=== PATIENT | male | born 1965 | race Caucasian/White ===

== ENCOUNTER 2017-06-15 06:20 | Inpatient (IN) | payer SELFPAY ==
[2017-06-15] MEDS ORDERED: NORMAL SALINE 1000 ML 1,000 ML IV PRN (07:07)
[2017-06-15] MEDS ORDERED: NORMAL SALINE 1000 ML 1,000 ML IV ONE (07:07)
[2017-06-15] MEDS ORDERED: DICYCLOMINE HCL INJ 20 MG/2 ML AMPULE IM PRN (07:08)
[2017-06-15] MEDS ORDERED: PROCHLORPERAZINE EDISYLATE INJ 10 MG/2 ML VIAL IM ONE (07:08)
--- NOTE | 2017-06-15 07:10 | ER Document Report ---
ED General - General Chief Complaint: Alcohol Withdrawl Stated Complaint: TOO MUCH TO DRINK Time Seen by Provider: 06/15/17 07:03 Notes: 51 years old male with a history of alcohol abuse, states that he has been drinking plain vodka aquatic every day for the last 5 days., Has not eaten anything has vomited many times, currently having diffuse abdominal pain/ discomfort. Denies any vomiting blood. Did not have any diarrhea or bloody stools. Denies any constitutional symptoms TRAVEL OUTSIDE OF THE [place] IN LAST 30 DAYS: No - Related Data Allergies/Adverse Reactions: No Known Allergies Allergy (Unverified 03/30/15 09:13) Past Medical History - Social History Smoking Status: Unknown if Ever Smoked Frequency of alcohol use: Heavy Family History: Reviewed & Not Pertinent Patient has suicidal ideation: No Patient has homicidal ideation: No Renal/ Medical History: Denies: Hx Peritoneal Dialysis Psychiatric Medical History: Reports: Hx Anxiety Past Surgical History: Reports: Hx Orthopedic Surgery - Right forearm surgery - Immunizations Hx Diphtheria, Pertussis, Tetanus Vaccination: Yes Review of Systems - Review of Systems Notes: REVIEW OF SYSTEMS: CONSTITUTIONAL : Denies fever, chills, or sweats. Denies recent illness. EENT: Denies eye, ear, throat, or mouth pain or symptoms. Denies nasal or sinus congestion or discharge. Denies throat, tongue, or mouth swelling or difficulty swallowing. CARDIOVASCULAR: Denies chest pain. Denies palpitations or racing or irregular heart beat. Denies ankle edema. RESPIRATORY: Denies cough, cold, or chest congestion. Denies shortness of breath, difficulty breathing, or wheezing. GASTROINTESTINAL: Denies abdominal pain or distention. Denies nausea, vomiting , or diarrhea. Denies blood in vomitus, stools, or per rectum. Denies black, tarry stools. Denies constipation. GENITOURINARY: Denies difficulty urinating, painful urination, burning, frequency, blood in urine, or discharge. MUSCULOSKELETAL: Denies back or neck pain or stiffness. Denies joint pain or swelling. SKIN: Denies rash, lesions or sores. HEMATOLOGIC : Denies easy bruising or bleeding. LYMPHATIC: Denies swollen, enlarged glands. NEUROLOGICAL: Denies confusion or altered mental status. Denies passing out or loss of consciousness. Denies dizziness or lightheadedness. Denies headache. Denies weakness or paralysis or loss of use of either side. Denies problems with gait or speech. Denies sensory loss, numbness, or tingling. Denies seizures. PSYCHIATRIC: Denies anxiety or stress. Denies depression, suicidal ideation, or homicidal ideation. ALL OTHER SYSTEMS REVIEWED AND NEGATIVE. Dictation was performed using [employer] voice recognition software PHYSICAL EXAMINATION: GENERAL: Well-appearing, well-nourished and in mild to moderate acute distress. Not appear to be severely intoxicated HEAD: Atraumatic, normocephalic. EYES: Pupils equal round and reactive to light, extraocular movements intact, sclera anicteric, conjunctiva are normal. ENT: Nares patent, oropharynx clear without exudates. Moist mucous membranes. NECK: Normal range of motion, supple without lymphadenopathy LUNGS: Breath sounds clear to auscultation bilaterally and equal. No wheezes rales or rhonchi. HEART: Regular rate and rhythm without murmurs ABDOMEN: Soft, nontender, nondistended abdomen. No guarding, no rebound. No masses appreciated. Musculoskeletal: Normal range of motion, no pitting or edema. No cyanosis. NEUROLOGICAL: Cranial nerves grossly intact. Normal speech, normal gait. Normal sensory, motor exams PSYCH: Normal mood, normal affect. SKIN: Warm, Dry, normal turgor, no rashes or lesions noted. Physical Exam - Vital signs Vitals: Temp Pulse Resp BP Pulse Ox 98.0 F 101 H 17 125/99 H 95 06/15/17 06:48 06/15/17 06:48 06/15/17 06:48 06/15/17 06:48 06/15/17 06:48 Course - Vital Signs Vital signs: Temp Pulse Resp BP Pulse Ox 98.0 F 101 H 19 125/99 H 97 06/15/17 06:48 06/15/17 06:48 06/15/17 08:00 06/15/17 06:48 06/15/17 08:00 - Laboratory Result Diagrams: 06/15/17 07:48 06/15/17 07:48 Laboratory results interpreted by me: 06/15/17 06/15/17 06/15/17 07:48 07:48 07:48 RBC 4.33 L MCH 34.1 H RDW 16.8 H Plt Count 109 L Band Neutrophils % 15 H Lymphocytes % (Manual) 9 L Sodium 127.1 L Chloride 85 L Carbon Dioxide 15 L Anion Gap 27 H Glucose 213 H Total Bilirubin 3.7 H Direct Bilirubin 2.8 H AST 349 H ALT 178 H Alkaline Phosphatase 189 H Lipase 301.6 H - Diagnostic Test Radiology results interpreted by me: 06/15/17 15:41 CTA of the abdomen reported by radiologist and reviewed Discharge - Discharge Clinical Impression: Alcohol abuse, Dehydration, Abdominal pain Pancreatitis, alcoholic, acute Qualifiers: Acute pancreatitis complication: unspecified Qualified Code(s): K85.20 - Alcohol induced acute pancreatitis without necrosis or infection Disposition: ADMITTED INPATIENT Admitting Provider: Hospitalist Unit Admitted: Telemetry
[2017-06-15 07:59] LABS: HEMATOCRIT 41.8 % (37.9-51.0); HEMOGLOBIN 14.8 g/dL (13.5-17.0); HGB HCT DIFFERENCE 2.6; MEAN CORPUSCULAR HEMOGLOBIN 34.1 pg (27.0-33.4); MEAN CORPUSCULAR HGB CONC 35.3 g/dL (32.0-36.0); MEAN CORPUSCULAR VOLUME 97 fl (80-97); RED BLOOD COUNT 4.33 10^6/uL (4.35-5.55); RED CELL DISTRIBUTION WIDTH 16.8 % (11.5-14.0); WHITE BLOOD COUNT 6.4 10^3/uL (4.0-10.5)
[2017-06-15 08:12] LABS: ALANINE AMINOTRANSFERASE 178 U/L (21-72); ALKALINE PHOSPHATASE 189 U/L (38-126); ASPARTATE AMINO TRANSFERASE 349 U/L (17-59); BILIRUBIN,DIRECT 2.8 mg/dL (0.0-0.4); BILIRUBIN,TOTAL 3.7 mg/dL (0.2-1.3); BLOOD UREA NITROGEN 18 mg/dL (7-20); CALCIUM 9.3 mg/dL (8.4-10.2); CARBON DIOXIDE 15 mmol/L (22-30); CHLORIDE 85 mmol/L (98-107); CREATININE RESULT 1.07 mg/dL (0.52-1.25); GLUCOSE 213 mg/dL (75-110); POTASSIUM 3.7 mmol/L (3.6-5.0); SODIUM 127.1 mmol/L (137-145); TOTAL PROTEIN 6.7 g/dL (6.3-8.2)
[2017-06-15 08:18] LABS: ALCOHOL < 10 mg/dL (NONE DETECTED)
[2017-06-15 08:28] LABS: BASOPHILS % (MANUAL) 0 % (0-2); EOSINOPHILS % (MANUAL) 0 % (0-6); LYMPHOCYTES % (MANUAL) 9 % (13-45); TOTAL CELLS COUNTED 100
[2017-06-15 08:29] LABS: ANISOCYTOSIS SLIGHT; BAND NEUTROPHILS % (MANUAL) 15 % (3-5); HYPOCHROMASIA SLIGHT
[2017-06-15 08:30] LABS: ANION GAP 27 (5-19); NUCLEATED RED BLOOD CELLS 7 /100 WBC (0)
[2017-06-15] MEDS ORDERED: KETOROLAC TROMETHAMINE INJ/PF 30 MG/1 ML SDV IV ONE (09:25)
[2017-06-15] MEDS ORDERED: LORAZEPAM INJ 2 MG/1 ML VIAL IV ONE (09:25)
[2017-06-15 09:41] LABS: URINE BARBITURATES SCREEN NEGATIVE; URINE METHADONE SCREEN NEGATIVE; URINE OPIATES LOW NEGATIVE; URINE PHENCYCLIDINE SCREEN NEGATIVE
[2017-06-15 09:56] LABS: LIPASE 301.6 U/L (23-300)
[2017-06-15] MEDS ORDERED: MORPHINE SULFATE 10 MG/ML INJ IV ONE (10:44)
--- NOTE | 2017-06-15 12:50 | RADIOLOGY REPORT (SQ) ---
EXAM DESCRIPTION: CT ABD/PELVIS WITH IV ONLY COMPLETED DATE/TIME: 06/15/2017 12:36 pm REASON FOR STUDY: Pancreatitis COMPARISON: None. TECHNIQUE: CT scan of the abdomen and pelvis performed using helical scanning technique with dynamic intravenous contrast injection. No oral contrast. Images reviewed with lung, soft tissue, and bone windows. Reconstructed coronal and sagittal MPR images reviewed. Delayed images for evaluation of the urinary system also acquired. All images stored on PACS. All CT scanners at this facility use dose modulation, iterative reconstruction, and/or weight based d osing when appropriate to reduce radiation dose to as low as reasonably achievable (ALARA). [facility]: Dose Right [facility]: CareDose [facility]: Dose Right [facility]: Teradose 4D [facility]: appCREAR CONTRAST TYPE AND DOSE: 93 Isovue 370- low osmolar. RENAL FUNCTION: GFR > 60. RADIATION DOSE: . LIMITATIONS: None. FINDINGS: LOWER CHEST: No significant findings. No nodules or infiltrates. LIVER: Diffuse fatty liver. No masses. SPLEEN: Normal size. No focal lesions. PANCREAS: No masses. No significant calcifications. No adjacent inflammation or peripancreatic fluid collections. Pancreatic duct not dilated. GALLBLADDER: No identified stones by CT criteria. No inflammatory changes to suggest cholecystitis. ADRENAL GLANDS: No significant masses or asymmetry. RIGHT KIDNEY AND URETER: No solid masses. No significant calcifications. No hydronephrosis or hyd roureter. LEFT KIDNEY AND URETER: No solid masses. No significant calcifications. No hydronephrosis or hydr oureter. AORTA AND VESSELS: No aneurysm. No dissection. Renal arteries, SMA, celiac without stenosis. 2 right renal arteries. RETROPERITONEUM: No retroperitoneal adenopathy, hemorrhage or masses. BOWEL AND PERITONEAL CAVITY: No masses or inflammatory changes. No free fluid or peritoneal masses. APPENDIX: Normal. PELVIS: No mass. No free fluid. Normal bladder. ABDOMINAL WALL: No masses. No hernias. BONES: No significant or acute findings. OTHER: No other significant finding. IMPRESSION: Marked fatty infiltration of the liver. No acute findings. TECHNICAL DOCUMENTATION: JOB ID: [id number] Quality ID # [id number]: Final reports with documentation of one or more dose reduction techniques (e.g., Au tomated exposure control, adjustment of the mA and/or kV according to patient size, use of iterative reconstruction technique) 2010 [employer]- All Rights Reserved
[2017-06-15] MEDS ORDERED: ONDANSETRON HCL INJ/PF 4 MG/2 ML SDV IV PRN (16:29)
--- NOTE | 2017-06-15 16:44 | PDOC H&P ---
History of Present Illness Patient complains of: Left upper quadrant abdominal pain. History of Present Illness: GHANSHYAM JUÁREZ is a 51 year old male with history of chronic alcohol abuse and peptic ulcer disease who presents with abdominal pain for the last several days. Patient reports that his pain is gotten worse over the last 24 hours. He drinks about 1/5 of vodka daily. He also reports he has had stomach ulcers in the past and usually takes Carafate and Prilosec for. He does report having an episode of melena last night. He has had some nausea and some acid reflux symptoms but no vomiting. He was found to have a slightly elevated lipase when he presented. Abdominal CT showed no abnormalities. The patient denies any nonsteroidal use. He denies any bright red blood per rectum. Denies any hematemesis. The patient has received some benzodiazepines while in the emergency room and is slightly sedated but is arousable and will answer questions appropriately. Past Medical History Cardiac Medical History: Reports: None Pulmonary Medical History: Reports: None EENT Medical History: Reports: None Neurological Medical History: Reports: None Endocrine Medical History: Reports: None Renal/ Medical History: Reports: None Malignancy Medical History: Reports: None GI Medical History: Reports: Peptic Ulcer Disease Musculoskeltal Medical History: Reports: None Skin Medical History: Reports: Other - Large lesion on his right shoulder Psychiatric Medical History: Reports: Alcohol Dependency Traumatic Medical History: Reports: None Hematology: Reports: None Infectious Medical History: Reports: None Past Surgical History Past Surgical History: Reports: Orthopedic Surgery - Right forearm surgery Social History Information Source: Patient Lives with: Alone Smoking Status: Former Smoker Frequency of Alcohol Use: Heavy Hx Recreational Drug Use: No Drugs: None Hx Prescription Drug Abuse: No - Advance Directive Resuscitation Status: Full Code Family History Family History: Father's 83 alive and has arthritis. Mother is 83 alive and has dementia. Parental Family History Reviewed: Yes Children Family History Reviewed: No Sibling(s) Family History Reviewed.: No Medication/Allergy Home Medications: Lorazepam [Ativan 1 mg Tablet] 1 mg PO Q6 #20 tab 04/14/15 Promethazine HCl [Phenergan 25 mg Tablet] 25 mg PO Q6 #20 tablet 04/14/15 Omeprazole 40 mg PO DAILY #30 capsule. 04/23/15 Ondansetron [Zofran Odt 4 mg Tablet] 1 - 2 tab PO Q4H PRN #15 tab.rapdis Sucralfate [Carafate 1 gm Tablet] 1 gm PO QID #40 tablet 04/23/15 Allergies/Adverse Reactions: No Known Allergies Allergy (Unverified 03/30/15 09:13) Review of Systems Constitutional: ABSENT: chills, fever(s), headache(s), weight gain, weight loss Eyes: ABSENT: visual disturbances Ears: ABSENT: hearing changes Cardiovascular: ABSENT: chest pain, dyspnea on exertion, edema, orthropnea, palpitations Respiratory: ABSENT: cough, hemoptysis Gastrointestinal: PRESENT: as per HPI, heartburn, melena, nausea. ABSENT: diarrhea, dysphagia, vomiting Genitourinary: ABSENT: dysuria, hematuria Musculoskeletal: ABSENT: joint swelling Integumentary: PRESENT: other - Lesion on the right shoulder suspicious for squamous cell cancer. Neurological: ABSENT: abnormal gait, abnormal speech, confusion, dizziness, focal weakness, syncope Psychiatric: ABSENT: anxiety, depression Endocrine: ABSENT: cold intolerance, heat intolerance, polydipsia, polyuria Hematologic/Lymphatic: ABSENT: easy bleeding, easy bruising Physical Exam Vital Signs: Temp Pulse Resp BP Pulse Ox 98.0 F 101 H 19 125/99 H 97 06/15/17 06:48 06/15/17 06:48 06/15/17 08:00 06/15/17 06:48 06/15/17 08:00 General appearance: PRESENT: no acute distress, well-developed, well-nourished Head exam: PRESENT: atraumatic, normocephalic Eye exam: PRESENT: conjunctiva pink, EOMI, PERRLA. ABSENT: scleral icterus Ear exam: PRESENT: normal external ear exam Mouth exam: PRESENT: moist, tongue midline Neck exam: ABSENT: carotid bruit, JVD, lymphadenopathy, thyromegaly Respiratory exam: PRESENT: clear to auscultation addie. ABSENT: rales, rhonchi, wheezes Cardiovascular exam: PRESENT: RRR. ABSENT: diastolic murmur, rubs, systolic murmur Pulses: PRESENT: normal dorsalis pedis pul Vascular exam: PRESENT: normal capillary refill GI/Abdominal exam: PRESENT: normal bowel sounds, soft, tenderness - Left upper quadrant tenderness.. ABSENT: distended, guarding, mass, organolmegaly, rebound Rectal exam: PRESENT: heme (+) stool Extremities exam: ABSENT: calf tenderness, clubbing, pedal edema Neurological exam: PRESENT: alert, awake, oriented to person, oriented to place , CN II-XII grossly intact. ABSENT: oriented to time, oriented to situation, motor sensory deficit Psychiatric exam: PRESENT: flat affect Skin exam: PRESENT: other - Raised erythematous lesion on the right shoulder approximately 2 inches in diameter. It has raised rolled border suspicious for squamous cell cancer. Results Laboratory Results: 06/15/17 07:48 06/15/17 07:48 06/15/17 06/15/17 06/15/17 07:48 07:48 07:48 WBC 6.4 RBC 4.33 L Hgb 14.8 Hct 41.8 MCV 97 MCH 34.1 H MCHC 35.3 RDW 16.8 H Plt Count 109 L Seg Neutrophils % Not Reportable Lymphocytes % Not Reportable Monocytes % Not Reportable Eosinophils % Not Reportable Basophils % Not Reportable Absolute Neutrophils Not Reportable Absolute Lymphocytes Not Reportable Absolute Monocytes Not Reportable Absolute Eosinophils Not Reportable Absolute Basophils Not Reportable Sodium 127.1 L Potassium 3.7 Chloride 85 L Carbon Dioxide 15 L Anion Gap 27 H BUN 18 Creatinine 1.07 Est GFR ( Amer) > 60 Est GFR (Non-Af Amer) > 60 Glucose 213 H Calcium 9.3 Total Bilirubin 3.7 H AST 349 H ALT 178 H Alkaline Phosphatase 189 H Total Protein 6.7 Albumin 4.0 Amylase 36 Lipase 301.6 H Impressions: Abdomen/Pelvis CT 06/15/17 12:17 IMPRESSION: Marked fatty infiltration of the liver. No acute findings. Assessment & Plan - Diagnosis (1) Abdominal pain Is this a current diagnosis for this admission?: Yes Plan: The patient has abdominal pain in epigastric and left upper quadrant pain. He has a slightly elevated lipase. Will treat for presumptive pancreatitis by making him n.p.o. and given IV fluids. We will also give IV narcotics as needed. If his pain continues we would also consider that this is secondary to peptic ulcer disease and consult GI if he continues to have pain. (2) Pancreatitis, alcoholic, acute Qualifiers: Acute pancreatitis complication: unspecified Qualified Code(s): K85.20 - Alcohol induced acute pancreatitis without necrosis or infection Is this a current diagnosis for this admission?: Yes Plan: Patient has been made n.p.o. Will give IV fluids and IV morphine. (3) Dehydration Is this a current diagnosis for this admission?: Yes Plan: The patient is acidotic most likely secondary to dehydration and will give IV fluids. (4) Alcohol abuse Is this a current diagnosis for this admission?: Yes Plan: The patient drinks 1/5 of vodka daily. His last drink was approximately 12 hours ago. He has been given benzodiazepines here in the emergency room and is showing no evidence for DTs at this time. (5) Skin cancer Is this a current diagnosis for this admission?: Yes Plan: Patient has a proximally 3 inch lesion on his right shoulder that suspicious for squamous cell cancer. - Time Time Spent: 50 to 70 Minutes - Inpatient Certification Medical Necessity: Need For IV Fluids, Need for Pain Control
[2017-06-15 17:45] LABS: PROTHROMBIN TIME 14.5 SEC (11.4-15.4)
[2017-06-15] MEDS: SUCRALFATE 1 GM TABLET PO SCH ×2 (19:21→22:15)
[2017-06-15 20:08] LABS: ABSOLUTE LYMPHOCYTES (AUTO) 0.5 10^3/uL (0.5-4.7); ABSOLUTE MONOCYTES (AUTO) 0.9 10^3/uL (0.1-1.4); BASOPHILS % (AUTO) 0.1 % (0-2); HEMATOCRIT 37.8 % (37.9-51.0); HEMOGLOBIN 13.2 g/dL (13.5-17.0); HGB HCT DIFFERENCE 1.8; LYMPHOCYTES % (AUTO) 7.9 % (13-45); MEAN CORPUSCULAR HEMOGLOBIN 33.7 pg (27.0-33.4); MEAN CORPUSCULAR VOLUME 96 fl (80-97); MONOCYTES % (AUTO) 13.3 % (3-13); RED BLOOD COUNT 3.93 10^6/uL (4.35-5.55); RED CELL DISTRIBUTION WIDTH 17.5 % (11.5-14.0); SEGMENTED NEUTROPHILS % (AUTO) 78.7 % (42-78); WHITE BLOOD COUNT 6.4 10^3/uL (4.0-10.5)
[2017-06-15 20:23] LABS: ALANINE AMINOTRANSFERASE 157 U/L (21-72); ALBUMIN 3.2 g/dL (3.5-5.0); ALKALINE PHOSPHATASE 153 U/L (38-126); ANION GAP 14 (5-19); ASPARTATE AMINO TRANSFERASE 287 U/L (17-59); BILIRUBIN,TOTAL 2.4 mg/dL (0.2-1.3); BLOOD UREA NITROGEN 14 mg/dL (7-20); CALCIUM 8.9 mg/dL (8.4-10.2); CARBON DIOXIDE 23 mmol/L (22-30); CHLORIDE 97 mmol/L (98-107); CREATININE RESULT 0.86 mg/dL (0.52-1.25); GLUCOSE 205 mg/dL (75-110); POTASSIUM 3.5 mmol/L (3.6-5.0); SODIUM 133.5 mmol/L (137-145); TOTAL PROTEIN 5.8 g/dL (6.3-8.2)
[2017-06-15 20:28] LABS: AMORPHOUS SEDIMENT,URINE TRACE /HPF; APPEARANCE,URINE CLEAR; BILIRUBIN,URINE NEGATIVE (NEGATIVE); GLUCOSE, URINE 50 mg/dL (NEGATIVE); KETONES,URINE 20 mg/dL (NEGATIVE); LEUKOCYTE ESTERASE,URINE NEGATIVE (NEGATIVE); NITRITE,URINE NEGATIVE (NEGATIVE); PROTEIN,URINE NEGATIVE (NEGATIVE); UROBILINOGEN,URINE NEGATIVE mg/dL (<2.0)
[2017-06-15] MEDS ORDERED: THIAMINE HCL 100 MG, FOLIC ACID 1 MG in NORMAL SALINE 250 ML IV SCH (20:45)
[2017-06-15] MEDS: NORMAL SALINE 1000 ML 1,000 ML IV PRN (20:54)
[2017-06-15] MEDS ORDERED: FOLIC ACID INJ 5 MG/1 ML 10 ML VIAL IV PRN (20:54)
[2017-06-15] MEDS ORDERED: THIAMINE HCL INJ 200 MG/2 ML VIAL IV PRN (20:54)
[2017-06-15] MEDS ORDERED: THIAMINE HCL 100 MG, FOLIC ACID 1 MG in NORMAL SALINE 250 ML IV ONE (21:00)
[2017-06-15] MEDS: LORAZEPAM INJ 2 MG/1 ML VIAL IV PRN (22:58)
[2017-06-16] MEDS: MORPHINE SULFATE 10 MG/ML INJ IV PRN ×5 (02:07→23:59)
[2017-06-16 05:31] LABS: HEMATOCRIT 36.3 % (37.9-51.0); HEMOGLOBIN 12.6 g/dL (13.5-17.0); HGB HCT DIFFERENCE 1.5; MEAN CORPUSCULAR HEMOGLOBIN 33.9 pg (27.0-33.4); MEAN CORPUSCULAR HGB CONC 34.8 g/dL (32.0-36.0); MEAN CORPUSCULAR VOLUME 98 fl (80-97); RED BLOOD COUNT 3.72 10^6/uL (4.35-5.55); RED CELL DISTRIBUTION WIDTH 17.2 % (11.5-14.0); WHITE BLOOD COUNT 6.6 10^3/uL (4.0-10.5)
[2017-06-16 05:50] LABS: ALANINE AMINOTRANSFERASE 153 U/L (21-72); ALKALINE PHOSPHATASE 161 U/L (38-126); ANION GAP 14 (5-19); ASPARTATE AMINO TRANSFERASE 262 U/L (17-59); BILIRUBIN,DIRECT 1.7 mg/dL (0.0-0.4); BILIRUBIN,TOTAL 2.2 mg/dL (0.2-1.3); BLOOD UREA NITROGEN 9 mg/dL (7-20); CALCIUM 8.3 mg/dL (8.4-10.2); CARBON DIOXIDE 25 mmol/L (22-30); CHLORIDE 97 mmol/L (98-107); CREATININE RESULT 0.69 mg/dL (0.52-1.25); GLUCOSE 160 mg/dL (75-110); LIPASE 314.9 U/L (23-300); POTASSIUM 3.1 mmol/L (3.6-5.0); SODIUM 135.6 mmol/L (137-145); TOTAL PROTEIN 5.4 g/dL (6.3-8.2)
[2017-06-16] MEDS ORDERED: LANSOPRAZOLE 30 MG TAB.RAP.DR PO ONE (07:45)
[2017-06-16] MEDS: LORAZEPAM INJ 2 MG/1 ML VIAL IV PRN ×4 (07:56→21:18)
[2017-06-16] MEDS ORDERED: ONDANSETRON HCL INJ/PF 4 MG/2 ML SDV IV PRN (08:30)
[2017-06-16] MEDS: POTASSI CL 20 MEQ/50 ML RIDER 20 MEQ/50 ML RTUPB IV SCH ×2 (09:39→12:09)
[2017-06-16] MEDS: SUCRALFATE 1 GM TABLET PO SCH ×4 (09:39→21:14)
[2017-06-16] MEDS: ENOXAPARIN SODIUM INJ 40 MG/0.4 ML DISP.SYRIN SUBCUT SCH (09:40)
[2017-06-16 12:35] LABS: PATH REVIEW PATHOLOGIST REVIEWED
--- NOTE | 2017-06-16 14:57 | PDOC PROGRESS REPORT ---
Subjective Progress Note for:: 06/16/17 Subjective:: Still complains of left upper quadrant pain Reason For Visit: PANCREATITIS Physical Exam Vital Signs: Temp Pulse Resp BP Pulse Ox 98.6 F 94 16 143/91 H 93 06/16/17 12:48 06/16/17 12:48 06/16/17 12:48 06/16/17 12:48 06/16/17 12:48 Intake & Output 06/15/17 06/16/17 06/17/17 06:59 06:59 06:59 Intake Total 0 Output Total 1900 Balance -1900 Weight 86.8 kg General appearance: PRESENT: no acute distress Eye exam: PRESENT: conjunctiva pink. ABSENT: scleral icterus Mouth exam: PRESENT: moist, tongue midline Neck exam: ABSENT: JVD Respiratory exam: PRESENT: clear to auscultation addie. ABSENT: rales, rhonchi, wheezes Cardiovascular exam: PRESENT: RRR. ABSENT: diastolic murmur, rubs, systolic murmur GI/Abdominal exam: PRESENT: normal bowel sounds, soft, tenderness - Left upper quadrant. ABSENT: distended, guarding, mass, organolmegaly, rebound Extremities exam: ABSENT: calf tenderness, clubbing, pedal edema Neurological exam: PRESENT: alert, awake, oriented to person, oriented to place , oriented to time, oriented to situation, CN II-XII grossly intact. ABSENT: motor sensory deficit Psychiatric exam: PRESENT: appropriate affect Skin exam: PRESENT: dry, intact, warm. ABSENT: cyanosis, rash Results Laboratory Results: 06/16/17 03:52 06/16/17 03:52 06/15/17 06/15/17 06/16/17 19:55 19:55 03:52 WBC 6.4 6.6 RBC 3.93 L 3.72 L Hgb 13.2 L 12.6 L Hct 37.8 L 36.3 L MCV 96 98 H MCH 33.7 H 33.9 H MCHC 35.0 34.8 RDW 17.5 H 17.2 H Plt Count 104 L 103 L Seg Neutrophils % 78.7 H Lymphocytes % 7.9 L Monocytes % 13.3 H Eosinophils % 0.0 Basophils % 0.1 Absolute Neutrophils 5.0 Absolute Lymphocytes 0.5 Absolute Monocytes 0.9 Absolute Eosinophils 0.0 Absolute Basophils 0.0 Sodium 133.5 L Potassium 3.5 L Chloride 97 L Carbon Dioxide 23 Anion Gap 14 BUN 14 Creatinine 0.86 Est GFR ( Amer) > 60 Est GFR (Non-Af Amer) > 60 Glucose 205 H Calcium 8.9 Total Bilirubin 2.4 H AST 287 H ALT 157 H Alkaline Phosphatase 153 H Total Protein 5.8 L Albumin 3.2 L Lipase 06/16/17 03:52 WBC RBC Hgb Hct MCV MCH MCHC RDW Plt Count Seg Neutrophils % Lymphocytes % Monocytes % Eosinophils % Basophils % Absolute Neutrophils Absolute Lymphocytes Absolute Monocytes Absolute Eosinophils Absolute Basophils Sodium 135.6 L Potassium 3.1 L Chloride 97 L Carbon Dioxide 25 Anion Gap 14 BUN 9 Creatinine 0.69 Est GFR ( Amer) > 60 Est GFR (Non-Af Amer) > 60 Glucose 160 H Calcium 8.3 L Total Bilirubin 2.2 H AST 262 H ALT 153 H Alkaline Phosphatase 161 H Total Protein 5.4 L Albumin 3.0 L Lipase 314.9 H Impressions: Abdomen/Pelvis CT 06/15/17 12:17 IMPRESSION: Marked fatty infiltration of the liver. No acute findings. Assessment & Plan - Diagnosis (1) Abdominal pain Is this a current diagnosis for this admission?: Yes Plan: The patient has abdominal pain in epigastric and left upper quadrant pain. He has a slightly elevated lipase. The pain most likely is from pancreatitis. Given his alcohol use the possibility of gastritis is also considered. We will continue with n.p.o., IV fluids, narcotics. (2) Pancreatitis, alcoholic, acute Qualifiers: Acute pancreatitis complication: unspecified Qualified Code(s): K85.20 - Alcohol induced acute pancreatitis without necrosis or infection Is this a current diagnosis for this admission?: Yes Plan: Patient has been made n.p.o. Will give IV fluids and IV morphine. (3) Dehydration Is this a current diagnosis for this admission?: Yes Plan: The patient's acidosis has resolved. (4) Alcohol abuse Is this a current diagnosis for this admission?: Yes Plan: The patient drinks 1/5 of vodka daily. showing no evidence for DTs at this time. (5) Skin cancer Is this a current diagnosis for this admission?: Yes Plan: Patient has a proximally 3 inch lesion on his right shoulder that suspicious for squamous cell cancer. - Time Time Spent with patient: 25-34 minutes - Inpatient Certification Medical Necessity: Need For IV Fluids, Need for Pain Control
[2017-06-16] MEDS: NORMAL SALINE 1000 ML 1,000 ML IV PRN (16:21)
[2017-06-16] MEDS: THIAMINE HCL 100 MG, FOLIC ACID 1 MG in NORMAL SALINE 250 ML IV SCH (21:14)
[2017-06-17] MEDS: LANSOPRAZOLE 30 MG TAB.RAP.DR PO SCH (05:48)
[2017-06-17] MEDS: MORPHINE SULFATE 10 MG/ML INJ IV PRN ×4 (05:49→22:48)
[2017-06-17] MEDS: LORAZEPAM INJ 2 MG/1 ML VIAL IV PRN ×5 (05:49→22:48)
[2017-06-17 06:37] LABS: ABSOLUTE LYMPHOCYTES (AUTO) 0.6 10^3/uL (0.5-4.7); ABSOLUTE MONOCYTES (AUTO) 0.6 10^3/uL (0.1-1.4); BASOPHILS % (AUTO) 0.1 % (0-2); EOSINOPHILS % (AUTO) 0.2 % (0-6); HEMATOCRIT 36.6 % (37.9-51.0); HEMOGLOBIN 12.6 g/dL (13.5-17.0); HGB HCT DIFFERENCE 1.2; LYMPHOCYTES % (AUTO) 9.3 % (13-45); MEAN CORPUSCULAR HEMOGLOBIN 33.3 pg (27.0-33.4); MEAN CORPUSCULAR HGB CONC 34.4 g/dL (32.0-36.0); MEAN CORPUSCULAR VOLUME 97 fl (80-97); MONOCYTES % (AUTO) 9.5 % (3-13); RED BLOOD COUNT 3.78 10^6/uL (4.35-5.55); RED CELL DISTRIBUTION WIDTH 17.4 % (11.5-14.0); SEGMENTED NEUTROPHILS % (AUTO) 80.9 % (42-78); WHITE BLOOD COUNT 6.2 10^3/uL (4.0-10.5)
[2017-06-17 07:09] LABS: ANION GAP 11 (5-19); BLOOD UREA NITROGEN 5 mg/dL (7-20); CALCIUM 7.9 mg/dL (8.4-10.2); CARBON DIOXIDE 30 mmol/L (22-30); CHLORIDE 95 mmol/L (98-107); CREATININE RESULT 0.55 mg/dL (0.52-1.25); GLUCOSE 119 mg/dL (75-110); LIPASE 177.2 U/L (23-300); SODIUM 135.9 mmol/L (137-145)
[2017-06-17 07:14] LABS: POTASSIUM 2.9 mmol/L (3.6-5.0)
[2017-06-17] MEDS: SUCRALFATE 1 GM TABLET PO SCH ×4 (09:29→22:48)
[2017-06-17] MEDS: ENOXAPARIN SODIUM INJ 40 MG/0.4 ML DISP.SYRIN SUBCUT SCH (09:30)
[2017-06-17] MEDS ORDERED: POTASSI CL 20 MEQ/50 ML RIDER 20 MEQ/50 ML RTUPB IV ONE (10:16)
--- NOTE | 2017-06-17 18:05 | PDOC PROGRESS REPORT ---
Subjective Progress Note for:: 06/17/17 Subjective:: This is a follow-up visit for alcoholic pancreatitis. The patient states he is ready to try something more than just ice chips. He states that he has been drinking water. He would like to try something with a little more subsidence. His abdominal pain is much better. Reason For Visit: PANCREATITIS Physical Exam Vital Signs: Temp Pulse Resp BP Pulse Ox 98.4 F 124 H 18 120/76 96 06/17/17 15:35 06/17/17 15:35 06/17/17 15:35 06/17/17 15:35 06/17/17 15:35 Intake & Output 06/16/17 06/17/17 06/18/17 06:59 06:59 06:59 Intake Total 0 120 600 Output Total 1900 2500 900 Balance -1900 -2380 -300 Weight 86.8 kg 86.8 kg GENERAL: This is a well-developed and nourished appearing white male resting in bed currently in no acute distress. HEART: Tachycardic at the bedside.. No murmurs, rubs or gallops. LUNGS: Clear to auscultation bilaterally with equal rise and fall of the chest. ABDOMEN: Soft, nontender with deep palpation, nondistended with normoactive bowel sounds EXTREMETIES: No clubbing, cyanosis or edema. 2+ peripheral pulses bilaterally. NEURO: Awake, alert and oriented 3. Cranial nerves II through XII are grossly intact. Results Laboratory Results: 06/17/17 05:50 06/17/17 05:50 06/17/17 06/17/17 05:50 05:50 WBC 6.2 RBC 3.78 L Hgb 12.6 L Hct 36.6 L MCV 97 MCH 33.3 MCHC 34.4 RDW 17.4 H Plt Count 98 L Seg Neutrophils % 80.9 H Lymphocytes % 9.3 L Monocytes % 9.5 Eosinophils % 0.2 Basophils % 0.1 Absolute Neutrophils 5.0 Absolute Lymphocytes 0.6 Absolute Monocytes 0.6 Absolute Eosinophils 0.0 Absolute Basophils 0.0 Sodium 135.9 L Potassium 2.9 L* Chloride 95 L Carbon Dioxide 30 Anion Gap 11 BUN 5 L Creatinine 0.55 Est GFR ( Amer) > 60 Est GFR (Non-Af Amer) > 60 Glucose 119 H Calcium 7.9 L Lipase 177.2 Impressions: Abdomen/Pelvis CT 06/15/17 12:17 IMPRESSION: Marked fatty infiltration of the liver. No acute findings. Assessment & Plan - Diagnosis (1) Pancreatitis, alcoholic, acute Qualifiers: Acute pancreatitis complication: unspecified Qualified Code(s): K85.20 - Alcohol induced acute pancreatitis without necrosis or infection Is this a current diagnosis for this admission?: Yes Plan: Pain is under better control. Advance to full liquids. (2) Hypokalemia Plan: Replace IV today. (3) Alcohol abuse Is this a current diagnosis for this admission?: Yes Plan: Cessation is recommended. (4) Dehydration Is this a current diagnosis for this admission?: Yes Plan: Encourage p.o. liquids at this point. Decrease fluids down to 125. (5) Skin cancer Is this a current diagnosis for this admission?: Yes Plan: Follow-up as an outpatient. - Time Time Spent with patient: 15-24 minutes - Inpatient Certification Medical Necessity: Need Close Monitoring Due to Risk of Patient Decompensation
[2017-06-17] MEDS: THIAMINE HCL 100 MG, FOLIC ACID 1 MG in NORMAL SALINE 250 ML IV SCH (22:48)
[2017-06-18] MEDS ORDERED: BISACODYL 5 MG TABEC PO ONE (03:00)
[2017-06-18 04:43] LABS: ABSOLUTE EOSINOPHILS # (AUTO) 0.1 10^3/uL (0.0-0.6); ABSOLUTE LYMPHOCYTES (AUTO) 0.7 10^3/uL (0.5-4.7); ABSOLUTE MONOCYTES (AUTO) 0.7 10^3/uL (0.1-1.4); ABSOLUTE NEUT (AUTO) 4.2 10^3/uL (1.7-8.2); BASOPHILS % (AUTO) 0.3 % (0-2); EOSINOPHILS % (AUTO) 0.9 % (0-6); HEMATOCRIT 37.6 % (37.9-51.0); HEMOGLOBIN 13.2 g/dL (13.5-17.0); LYMPHOCYTES % (AUTO) 12.1 % (13-45); MEAN CORPUSCULAR HEMOGLOBIN 33.8 pg (27.0-33.4); MEAN CORPUSCULAR HGB CONC 35.1 g/dL (32.0-36.0); MEAN CORPUSCULAR VOLUME 96 fl (80-97); MONOCYTES % (AUTO) 12.2 % (3-13); RED CELL DISTRIBUTION WIDTH 17.2 % (11.5-14.0); SEGMENTED NEUTROPHILS % (AUTO) 74.5 % (42-78); WHITE BLOOD COUNT 5.7 10^3/uL (4.0-10.5)
[2017-06-18 05:03] LABS: ANION GAP 8 (5-19); BLOOD UREA NITROGEN 6 mg/dL (7-20); CALCIUM 8.5 mg/dL (8.4-10.2); CARBON DIOXIDE 32 mmol/L (22-30); CHLORIDE 97 mmol/L (98-107); CREATININE RESULT 0.59 mg/dL (0.52-1.25); GLUCOSE 128 mg/dL (75-110); MAGNESIUM 1.8 mg/dL (1.6-2.3); SODIUM 136.8 mmol/L (137-145)
[2017-06-18] MEDS: LANSOPRAZOLE 30 MG TAB.RAP.DR PO SCH (05:24)
[2017-06-18] MEDS: LORAZEPAM INJ 2 MG/1 ML VIAL IV PRN (05:24)
[2017-06-18] MEDS: MORPHINE SULFATE 10 MG/ML INJ IV PRN (05:24)
[2017-06-18] MEDS ORDERED: MAGNESIUM SULFATE/D5W 1 GM/100 ML RTUPB IV ONE (06:45)
[2017-06-18] MEDS ORDERED: POTASSIUM CHLORIDE 20 MEQ/15 ML UDCUP PO ONE (06:45)
[2017-06-18] MEDS: POTASSIUM CHLORIDE 20 MEQ/50 ML RTU IV SCH ×2 (06:57→09:11)
[2017-06-18] MEDS: SUCRALFATE 1 GM TABLET PO SCH ×2 (09:09→10:13)
[2017-06-18] MEDS: ENOXAPARIN SODIUM INJ 40 MG/0.4 ML DISP.SYRIN SUBCUT SCH (09:41)
[2017-06-18 13:22] VITALS: BP 128/88
--- NOTE | 2017-06-18 17:10 | PDOC DISCHARGE SUMMARY ---
General - Admit/Disc Date/PCP Admission Date/Primary Care Provider: 06/15/17 16:51 Discharge Date: 06/18/17 - Discharge Diagnosis (1) Pancreatitis, alcoholic, acute Is this a current diagnosis for this admission?: Yes Summary: resolved (2) Hypokalemia Summary: replaced (3) Alcohol abuse Is this a current diagnosis for this admission?: Yes Summary: cessation is advised (4) Dehydration Is this a current diagnosis for this admission?: Yes Summary: resolved (5) Skin cancer Is this a current diagnosis for this admission?: Yes Summary: fu as an outpatient - Additional Information Resuscitation Status: Full Code Home Medications: Omeprazole 20 mg PO DAILYP PRN 06/16/17 Sucralfate [Carafate 1 gm Tablet] 1 gm PO ACHS #90 tablet 06/18/17 History of Present Illness History of Present Illness: GHANSHYAM JUÁREZ is a 51 year old male with a history of alcohol abuse who presents with acute pancreatitis. Please see the HPI below for details as outlined by the admitting physician. History of Present Illness Patient complains of: Left upper quadrant abdominal pain. History of Present Illness: GHANSHYAM JUÁREZ is a 51 year old male with history of chronic alcohol abuse and peptic ulcer disease who presents with abdominal pain for the last several days. Patient reports that his pain is gotten worse over the last 24 hours. He drinks about 1/5 of vodka daily. He also reports he has had stomach ulcers in the past and usually takes Carafate and Prilosec for. He does report having an episode of melena last night. He has had some nausea and some acid reflux symptoms but no vomiting. He was found to have a slightly elevated lipase when he presented. Abdominal CT showed no abnormalities. The patient denies any nonsteroidal use. He denies any bright red blood per rectum. Denies any hematemesis. The patient has received some benzodiazepines while in the emergency room and is slightly sedated but is arousable and will answer questions appropriately. Hospital Course Hospital Course: Patient was admitted to the hospital and initially made n.p.o. He was started on IV fluids. His lipase levels gradually decreased. The patient was able to tolerate ice chips and sips initially and was gradually advanced to full liquids and then a full diet. As of today he reports 0 pain with eating. He was on sucralfate as well as omeprazole. He should continue these as an outpatient. The patient does not have a primary care physician. He was told to present to the emergency room should his symptoms of abdominal pain recur or to present to urgent care. The patient was agreeable to this. Physical Exam Vital Signs: Temp Pulse Resp BP Pulse Ox 97.6 F 92 18 128/88 H 97 06/18/17 13:00 06/18/17 13:00 06/18/17 13:00 06/18/17 13:00 06/18/17 13:00 Intake & Output 06/17/17 06/18/17 06/19/17 06:59 06:59 06:59 Intake Total 120 3090 Output Total 2500 1200 Balance -2380 1890 Weight 86.8 kg 87.9 kg GENERAL: This is a well-developed and nourished appearing white male resting in bed currently in no acute distress. HEART: Regular rate and rhythm at the bedside. No murmurs, rubs or gallops. LUNGS: Clear to auscultation bilaterally with equal rise and fall of the chest. ABDOMEN: Soft, nontender with deep palpation, nondistended with normoactive bowel sounds EXTREMETIES: No clubbing, cyanosis or edema. 2+ peripheral pulses bilaterally. NEURO: Awake, alert and oriented 3. Cranial nerves II through XII are grossly intact. Results Laboratory Results: 06/18/17 04:08 06/18/17 04:08 06/18/17 06/18/17 04:08 04:08 WBC 5.7 RBC 3.90 L Hgb 13.2 L Hct 37.6 L MCV 96 MCH 33.8 H MCHC 35.1 RDW 17.2 H Plt Count 103 L Seg Neutrophils % 74.5 Lymphocytes % 12.1 L Monocytes % 12.2 Eosinophils % 0.9 Basophils % 0.3 Absolute Neutrophils 4.2 Absolute Lymphocytes 0.7 Absolute Monocytes 0.7 Absolute Eosinophils 0.1 Absolute Basophils 0.0 Sodium 136.8 L Potassium 3.0 L* Chloride 97 L Carbon Dioxide 32 H Anion Gap 8 BUN 6 L Creatinine 0.59 Est GFR ( Amer) > 60 Est GFR (Non-Af Amer) > 60 Glucose 128 H Calcium 8.5 Magnesium 1.8 Impressions: Abdomen/Pelvis CT 06/15/17 12:17 IMPRESSION: Marked fatty infiltration of the liver. No acute findings. Qualifiers PATEINT BEING DISCHARGED WITH ANY OF THE FOLLOWING DIAGNOSIS?: No Plan Time Spent: Less than 30 Minutes
== END 2017-06-18 17:30 | disposition home or self-care (01) | DRG 440 ==
LOC: ER 06:20 → EH 16:51 → 5 06-16 01:15
PROVIDERS: ADMIT Internal Medicine; ATTEND Internal Medicine
DX: K85.20 Alcohol induced acute pancreatitis without necrosis or infection (principal); E87.6 Hypokalemia; F10.20 Alcohol dependence, uncomplicated; Y90.0 Blood alcohol level of less than 20 mg/100 ml; E86.0 Dehydration; K70.0 Alcoholic fatty liver; C44.622 Squamous cell carcinoma of skin of right upper limb, including shoulder; Z79.899 Other long term (current) drug therapy; Z87.11 Personal history of peptic ulcer disease; Z87.891 Personal history of nicotine dependence; Z60.2 Problems related to living alone; Z82.61 Family history of arthritis; Z81.8 Family history of other mental and behavioral disorders
CPT/HCPCS: 36415; 74177; 80048; 80053; 80076; 80307; 81001; 82150; 83690; 83735; 85025; 85027; 85610; 85730; 96372; 96374; 96375; 99285; J0500; J0780; J1885; J2060; J2270; J2405; J3411; J3475; J3480; J3490; J7030; J7050

== ENCOUNTER 2018-09-25 17:26 | Inpatient (IN) | payer SELFPAY ==
[2018-09-25] MEDS ORDERED: NORMAL SALINE 1000 ML 1,000 ML IV ONE (19:37)
[2018-09-25] MEDS ORDERED: ONDANSETRON HCL INJ/PF 4 MG/2 ML SDV IV ONE (19:37)
[2018-09-25] MEDS ORDERED: THIAMINE HCL INJ 200 MG/2 ML VIAL IV ONE (19:38)
[2018-09-25] MEDS ORDERED: ONDANSETRON HCL INJ/PF 4 MG/2 ML SDV IM ONE (19:39)
--- NOTE | 2018-09-25 19:41 | ER Document Report ---
ED Medical Screen (RME) - General Chief Complaint: Alcohol Withdrawl Stated Complaint: ETOH DETOX Time Seen by Provider: 09/25/18 19:29 Notes: This 52-year-old male alcoholic comes emergency room requesting help with detox. States his last alcohol was 16 hours ago. He reports 12 hours ago he developed left upper abdominal pain with nausea and vomiting and coffee-ground vomiting. He states he thinks the pain is pancreatitis. He thinks we can give him some medicine to help him get through till tomorrow to "get over the hump". I have greeted and performed a rapid initial assessment of this patient. A comprehensive ED assessment and evaluation of the patient, analysis of test results and completion of the medical decision making process will be conducted by additional ED providers. TRAVEL OUTSIDE OF THE [place] IN LAST 30 DAYS: No - Related Data Allergies/Adverse Reactions: No Known Allergies Allergy (Verified 06/15/17 19:34) Past Medical History - Social History Frequency of alcohol use: Heavy Drug Abuse: None Renal/ Medical History: Denies: Hx Peritoneal Dialysis GI Medical History: Reports: Hx Gastroesophageal Reflux Disease Psychiatric Medical History: Reports: Hx Anxiety Past Surgical History: Reports: Hx Orthopedic Surgery - Right forearm surgery - Immunizations Hx Diphtheria, Pertussis, Tetanus Vaccination: Yes History of Influenza Vaccine for 04/2017 - 09/2017 Season: Refused Physical Exam - Vital signs Vitals: Temp Pulse Resp BP Pulse Ox 97.5 F 117 H 16 146/96 H 97 09/25/18 17:43 09/25/18 17:43 09/25/18 17:43 09/25/18 17:43 09/25/18 17:43 Course - Vital Signs Vital signs: Temp Pulse Resp BP Pulse Ox 97.5 F 117 H 16 146/96 H 97 09/25/18 17:43 09/25/18 17:43 09/25/18 17:43 09/25/18 17:43 09/25/18 17:43
[2018-09-25] MEDS ORDERED: PANTOPRAZOLE SODIUM 40 MG VIAL IV ONE ×2 (19:42→23:30)
[2018-09-25] MEDS ORDERED: ONDANSETRON HCL INJ/PF 4 MG/2 ML SDV ONE (19:50)
[2018-09-25 20:30] LABS: ABSOLUTE BASOPHILS # (AUTO) 0.1 10^3/uL (0.0-0.2); ABSOLUTE LYMPHOCYTES (AUTO) 0.7 10^3/uL (0.5-4.7); ABSOLUTE MONOCYTES (AUTO) 0.5 10^3/uL (0.1-1.4); ABSOLUTE NEUT (AUTO) 3.7 10^3/uL (1.7-8.2); BASOPHILS % (AUTO) 1.9 % (0-2); EOSINOPHILS % (AUTO) 0.1 % (0-6); HEMATOCRIT 41.8 % (37.9-51.0); HEMOGLOBIN 14.1 g/dL (13.5-17.0); LYMPHOCYTES % (AUTO) 14.5 % (13-45); MEAN CORPUSCULAR HEMOGLOBIN 37.3 pg (27.0-33.4); MEAN CORPUSCULAR HGB CONC 33.6 g/dL (32.0-36.0); MONOCYTES % (AUTO) 10.3 % (3-13); PLATELET COUNT 196 10^3/uL (150-450); RED BLOOD COUNT 3.77 10^6/uL (4.35-5.55); RED CELL DISTRIBUTION WIDTH 20.8 % (11.5-14.0); SEGMENTED NEUTROPHILS % (AUTO) 73.2 % (42-78); TOTAL CELLS COUNTED % (AUTO) 100 %
[2018-09-25 20:38] LABS: APPEARANCE,URINE SLIGHTLY-CLOUDY; BILIRUBIN,URINE NEGATIVE (NEGATIVE); GLUCOSE, URINE NEGATIVE (NEGATIVE); KETONES,URINE 80 mg/dL (NEGATIVE); LEUKOCYTE ESTERASE,URINE NEGATIVE (NEGATIVE); NITRITE,URINE NEGATIVE (NEGATIVE); PROTEIN,URINE 30 mg/dL (NEGATIVE); URINE SPECIFIC GRAVITY 1.016
[2018-09-25 20:40] LABS: COLOR,URINE YELLOW
[2018-09-25 20:45] LABS: ALANINE AMINOTRANSFERASE 309 U/L (21-72); ALBUMIN 5.3 g/dL (3.5-5.0); ALCOHOL 129 mg/dL (NONE DETECTED); ALKALINE PHOSPHATASE 218 U/L (38-126); BILIRUBIN,DIRECT 2.2 mg/dL (0.0-0.4); BILIRUBIN,TOTAL 2.8 mg/dL (0.2-1.3); BLOOD UREA NITROGEN 10 mg/dL (7-20); CALCIUM 10.2 mg/dL (8.4-10.2); CREATINE KINASE 81 U/L (55-170); POTASSIUM 4.8 mmol/L (3.6-5.0); TOTAL PROTEIN 8.2 g/dL (6.3-8.2)
[2018-09-25 20:46] LABS: GLUCOSE 55 mg/dL (75-110)
[2018-09-25 20:48] LABS: MEAN CORPUSCULAR VOLUME 111 fl (80-97)
[2018-09-25 20:50] LABS: CHLORIDE 97 mmol/L (98-107); SODIUM 141.9 mmol/L (137-145)
[2018-09-25 20:52] LABS: ANION GAP 36 (5-19); ASPARTATE AMINO TRANSFERASE 908 U/L (17-59)
[2018-09-25 20:53] LABS: PLATELET CLUMPS PRESENT
[2018-09-25 20:54] LABS: ANISOCYTOSIS 2+; CARBON DIOXIDE 9 mmol/L (22-30); POIKILOCYTOSIS SLIGHT; URINE AMPHETAMINES SCREEN NEGATIVE; URINE BARBITURATES SCREEN NEGATIVE; URINE BENZODIAZEPINES SCREEN NEGATIVE; URINE COCAINE SCREEN NEGATIVE; URINE MARIJUANA (THC) SCREEN NEGATIVE; URINE METHADONE SCREEN NEGATIVE; URINE PHENCYCLIDINE SCREEN NEGATIVE
[2018-09-25] MEDS ORDERED: DEXTROSE 50%-WATER 25 GM/50 ML DISP.SYRIN IV ONE (21:37)
[2018-09-25 21:53] LABS: LIPASE 66.4 U/L (23-300)
[2018-09-25] MEDS ORDERED: RINGERS SOLUTION,LACTATED 1,000 ML IV ONE (22:08)
[2018-09-25] MEDS ORDERED: DIAZEPAM INJ 10 MG/2 ML DISP.SYRIN IV ONE (22:09)
[2018-09-25] MEDS ORDERED: LIDOCAINE 2% VISCOUS SOLN 20 ML UDCUP PO ONE (22:09)
[2018-09-25] MEDS ORDERED: MAG HYDROX/AL HYDROX/SIMETH SUSP 30 ML UDCUP PO ONE (22:09)
[2018-09-25] MEDS ORDERED: METOCLOPRAMIDE HCL ORAL SOLN 10 MG/10 ML UDCUP PO ONE (22:09)
[2018-09-25] MEDS ORDERED: MORPHINE SULFATE 10 MG/ML INJ IV PRN (22:09)
--- NOTE | 2018-09-25 22:13 | ER Document Report ---
ED General - General Chief Complaint: Alcohol Withdrawl Stated Complaint: ETOH DETOX Time Seen by Provider: 09/25/18 19:29 Notes: Patient is a 52-year-old male with a past medical history of alcohol abuse, history of alcoholic pancreatitis who presents with 3 days of upper abdominal pain, nausea, vomiting, has been unable to keep anything down for the past 3 days. Patient describes the pain in his upper abdomen as being a throbbing, burning pain. Nothing seems to improve the discomfort. Eating or drinking attempts worsen the pain. States this feels similar to when he had pancreatitis in the past. Does not have a local primary care doctor. States he is also concerned that he is withdrawing from alcohol. States he has been tremulous, shaky and agitated similar to when he has had alcohol withdrawal in the past. Denies fever, shortness of breath, chest pain, headache or neck pain. TRAVEL OUTSIDE OF THE [place] IN LAST 30 DAYS: No - Related Data Allergies/Adverse Reactions: No Known Allergies Allergy (Verified 06/15/17 19:34) Past Medical History - General Information source: Patient - Social History Smoking Status: Current Every Day Smoker Frequency of alcohol use: Heavy Drug Abuse: None Lives with: Alone Family History: Reviewed & Not Pertinent Patient has suicidal ideation: No Patient has homicidal ideation: No Renal/ Medical History: Denies: Hx Peritoneal Dialysis GI Medical History: Reports: Hx Gastroesophageal Reflux Disease Psychiatric Medical History: Reports: Hx Anxiety Past Surgical History: Reports: Hx Orthopedic Surgery - Right forearm surgery - Immunizations Hx Diphtheria, Pertussis, Tetanus Vaccination: Yes Review of Systems - Review of Systems Notes: Constitutional: Negative for fever. HENT: Negative for sore throat. Eyes: Negative for visual changes. Cardiovascular: Negative for chest pain. Respiratory: Negative for shortness of breath. Gastrointestinal: Positive for abdominal pain, nausea, vomiting Genitourinary: Negative for dysuria. Musculoskeletal: Negative for back pain. Skin: Negative for rash. Neurological: Negative for headaches, weakness or numbness. Positive tremulousness 10 point ROS negative except as marked above and in HPI. Physical Exam - Vital signs Vitals: Temp Pulse Resp BP Pulse Ox 97.5 F 117 H 16 146/96 H 97 09/25/18 17:43 09/25/18 17:43 09/25/18 17:43 09/25/18 17:43 09/25/18 17:43 Interpretation: Hypertensive, Tachycardic Notes: PHYSICAL EXAMINATION: GENERAL: Appears moderately unwell but in no acute distress HEAD: Atraumatic, normocephalic. EYES: Pupils equal round and reactive to light, extraocular movements intact, sclera anicteric, conjunctiva are normal. ENT: nares patent, oropharynx clear without exudates. Dry mucous membranes. NECK: Normal range of motion, supple without lymphadenopathy LUNGS: Breath sounds clear to auscultation bilaterally and equal. No wheezes rales or rhonchi. HEART: Regular tachycardia without murmurs ABDOMEN: Soft, focal tenderness to the right upper quadrant, epigastrium and left upper quadrant normoactive bowel sounds. No guarding, no rebound. No masses appreciated. EXTREMITIES: Normal range of motion, no pitting or edema. No cyanosis. NEUROLOGICAL: No focal neurological deficits. Moves all extremities spontaneously and on command. PSYCH: Anxious, tremulous SKIN: Warm, Dry, normal turgor, no rashes or lesions noted. Course - Re-evaluation Re-evalutation: 09/25/18 22:11 Patient presents with labs, history consistent with alcoholic ketosis as well as alcoholic hepatitis. Patient has been vomiting, has not eaten anything in 3 days. Presents with an anion gap metabolic acidosis, bicarb 9, anion gap 36 with glucose of 55, ketones in the urine consistent with alcoholic ketosis. Patient was ordered thiamine, IV dextrose, IV fluids. Patient was also clinical withdrawing, tremulous, mildly tachycardic and hypertensive. IV diazepam 10 mg administered. Patient is complaining of epigastric abdominal discomfort likely alcoholic hepatitis and gastritis combined. I do not suspect a surgical intra- abdominal pathology, do not suspect an acute surgical biliary pathology. No indication for imaging of the abdomen at this point. Given the patient's alcoholic ketosis and hepatitis as well as withdrawing will discuss with hospitalist for admission. Venous blood gas requested. - Vital Signs Vital signs: Temp Pulse Resp BP Pulse Ox 97.7 F 119 H 17 160/84 H 96 09/26/18 01:18 09/26/18 01:18 09/26/18 01:18 09/26/18 01:18 09/26/18 01:18 - Laboratory Result Diagrams: 09/25/18 19:59 09/25/18 19:59 Laboratory results interpreted by me: 09/25/18 09/25/18 09/25/18 19:59 19:59 19:59 RBC 3.77 L MCV 111 H MCH 37.3 H RDW 20.8 H VBG pH VBG pCO2 VBG HCO3 Chloride 97 L Carbon Dioxide 9 L* Anion Gap 36 H Glucose 55 L Total Bilirubin 2.8 H Direct Bilirubin 2.2 H AST 908 H ALT 309 H Alkaline Phosphatase 218 H Albumin 5.3 H Urine Protein 30 H Urine Ketones 80 H Urine Blood SMALL H Urine Urobilinogen 4.0 H 09/25/18 22:20 RBC MCV MCH RDW VBG pH 7.14 L* VBG pCO2 29.8 L VBG HCO3 9.8 L Chloride Carbon Dioxide Anion Gap Glucose Total Bilirubin Direct Bilirubin AST ALT Alkaline Phosphatase Albumin Urine Protein Urine Ketones Urine Blood Urine Urobilinogen Discharge - Discharge Clinical Impression: Alcoholic ketosis, Metabolic acidosis, Dehydration, Alcohol abuse Alcohol withdrawal Qualifiers: Complication of substance-induced condition: uncomplicated Qualified Code(s): F10.230 - Alcohol dependence with withdrawal, uncomplicated Condition: Fair Disposition: ADMITTED INPATIENT Admitting Provider: Hospitalist Unit Admitted: Medical Floor
[2018-09-25 22:30] LABS: VENOUS BLOOD BASE EXCESS -17.9 mmol/L; VENOUS BLOOD HCO3 9.8 mmol/L (20-32); VENOUS BLOOD PCO2 29.8 mmHg (35-63)
[2018-09-25 22:35] LABS: VENOUS BLOOD PH 7.14 (7.30-7.42)
[2018-09-25] MEDS ORDERED: MAGNESIUM HYDROXIDE SUSP 30 ML UDCUP PO PRN (23:07)
--- NOTE | 2018-09-26 00:28 | PDOC H&P ---
History of Present Illness Admission Date/PCP: 09/25/2018 Primary physician: None Patient complains of: Intractable nausea and vomiting with upper abdominal pain History of Present Illness: GHANSHYAM JUÁREZ is a 52 year old male with history of ongoing ETOH abuse who decided to quit smoking today and has been having recurrent nausea and vomiting with diminished p.o. intake for the last 3 days. Today he has been having upper abdominal pain in epigastric and left upper quadrant area. He denies any fever or chills. No chest pain or dyspnea or palpitations. No cough or wheezing or hemoptysis. No diarrhea or constipation. Upon presentation to the emergency room, his blood pressure was slightly elevated at 147/91 with a pulse of 125 restrictive 17 pulse oximetry 94% on room air. CBC showed macrocytosis the patient and venous blood gas showed a pH of 7.14 with a PCO2 29.8 and bicarbonate of 9.8. His CMP showed a chloride of 97 with a CO2 of 9 and anion gap of 36 with a blood glucose of 55 total bilirubin of 2.8 and direct bilirubin of 2.2, AST of 908, ALT of 309 and alk phos of 215 with albumin of 5.3 and lipase of 66.4. Urinalysis showed 80 ketones and 30 protein. Urine drug screen came back negative and alcohol level was 129. The patient was given IV thiamine as well as D50, IV Protonix and Reglan viscous lidocaine, IV Valium and hydrated with lactated ringer. He will be admitted to a medical monitored bed for further evaluation and management for alcoholic ketoacidosis, hepatitis and possible early alcohol withdrawal. Past Medical History GI Medical History: Reports: Gastroesophageal Reflux Disease, Other - Alcoholic pancreatitis Skin Medical History: Reports: Other - Right shoulder skin cancer Psychiatric Medical History: Reports: Alcohol Dependency Past Surgical History Past Surgical History: Reports: Orthopedic Surgery - Right forearm surgery Social History Smoking Status: Current Every Day Smoker Frequency of Alcohol Use: Heavy Last Alcohol Use: 09/25/18 Hx Recreational Drug Use: No Drugs: None Hx Prescription Drug Abuse: No Family History Family History: Other - Positive for pancreatic cancer in his uncle, CVA in his father and grandfather Parental Family History Reviewed: Yes Children Family History Reviewed: Yes Sibling(s) Family History Reviewed.: Yes Medication/Allergy Home Medications: Omeprazole 20 mg PO DAILYP PRN 06/16/17 Sucralfate [Carafate 1 gm Tablet] 1 gm PO ACHS #90 tablet 06/18/17 Allergies/Adverse Reactions: No Known Allergies Allergy (Verified 06/15/17 19:34) Review of Systems Review of Systems: As per history of present illness. All pertinent systems were reviewed above. C onstitutional, HEENT, cardiovascular, respiratory, GI, , musculoskeletal, neuro, psychiatric, endocrine, integumentary and hematologic systems were reviewed and are otherwise negative/unremarkable except for positive findings mentioned above in the HPI. Physical Exam Vital Signs: Temp Pulse Resp BP Pulse Ox 97.5 F 117 H 17 150/78 H 96 09/25/18 17:43 09/25/18 17:43 09/25/18 23:01 09/25/18 23:00 09/25/18 23:01 Intake & Output 09/24/18 09/25/18 09/26/18 06:59 06:59 06:59 Weight 82.1 kg Exam: Generally: Mildly anxious middle-aged male in no acute distress Vital signs-as listed Head - atraumatic, normocephalic. He has a healed right temporal skin wound. Pupils - equal, round and reactive to light and accommodation. Extraocular movements are intact. No scleral icterus. Oropharynx - moist mucous membranes and tongue. No pharyngeal erythema or exudate. Neck - supple. No JVD. Carotid pulses 2+ bilaterally. No carotid bruits. No palpable thyromegaly or lymphadenopathy. Cardiovascular - regular rate and rhythm. Normal S1 and S2. No murmurs, gallops or rubs. Lungs - clear to auscultation bilaterally. Abdomen - soft with mild epigastric and left upper quadrant tenderness rebound tenderness guarding or rigidity. Positive bowel sounds. No palpable organomegaly or masses. Extremities - no pitting edema, clubbing or cyanosis. Neuro - grossly non-focal with minimal tremors. Skin - no rashes. and rectal exam - deferred. Results Laboratory Results: 09/25/18 19:59 09/25/18 19:59 09/25/18 09/25/18 09/25/18 19:59 19:59 19:59 WBC 5.0 RBC 3.77 L Hgb 14.1 Hct 41.8 MCV 111 H MCH 37.3 H MCHC 33.6 RDW 20.8 H Plt Count 196 Seg Neutrophils % 73.2 Lymphocytes % 14.5 Monocytes % 10.3 Eosinophils % 0.1 Basophils % 1.9 Absolute Neutrophils 3.7 Absolute Lymphocytes 0.7 Absolute Monocytes 0.5 Absolute Eosinophils 0.0 Absolute Basophils 0.1 VBG pH VBG pCO2 VBG HCO3 VBG Base Excess Sodium 141.9 Potassium 4.8 Chloride 97 L Carbon Dioxide 9 L* Anion Gap 36 H BUN 10 Creatinine 0.96 Est GFR ( Amer) > 60 Est GFR (Non-Af Amer) > 60 Glucose 55 L Calcium 10.2 Magnesium 2.1 Total Bilirubin 2.8 H AST 908 H ALT 309 H Alkaline Phosphatase 218 H Total Protein 8.2 Albumin 5.3 H Lipase Urine Color YELLOW Urine Appearance SLIGHTLY-CLOUDY Urine pH 5.0 Ur Specific [place] 1.016 Urine Protein 30 H Urine Glucose (UA) NEGATIVE Urine Ketones 80 H Urine Blood SMALL H Urine Nitrite NEGATIVE Ur Leukocyte Esterase NEGATIVE Urine WBC (Auto) 1 Urine RBC (Auto) 1 09/25/18 09/25/18 19:59 22:20 WBC RBC Hgb Hct MCV MCH MCHC RDW Plt Count Seg Neutrophils % Lymphocytes % Monocytes % Eosinophils % Basophils % Absolute Neutrophils Absolute Lymphocytes Absolute Monocytes Absolute Eosinophils Absolute Basophils VBG pH 7.14 L* VBG pCO2 29.8 L VBG HCO3 9.8 L VBG Base Excess -17.9 Sodium Potassium Chloride Carbon Dioxide Anion Gap BUN Creatinine Est GFR ( Amer) Est GFR (Non-Af Amer) Glucose Calcium Magnesium Total Bilirubin AST ALT Alkaline Phosphatase Total Protein Albumin Lipase 66.4 Urine Color Urine Appearance Urine pH Ur Specific [place] Urine Protein Urine Glucose (UA) Urine Ketones Urine Blood Urine Nitrite Ur Leukocyte Esterase Urine WBC (Auto) Urine RBC (Auto) 09/25/18 19:59 Creatine Kinase 81 Assessment and Plan - Diagnosis (1) Alcoholic ketoacidosis Is this a current diagnosis for this admission?: Yes Plan: Patient will be admitted to the medical monitor bed. He will be placed on IV hydration with normal saline as well as a banana bag daily. We will follow his BMP. His hypoglycemia will check a hemoglobin A1c level. We will check his fingerstick blood glucose as needed. (2) Alcohol withdrawal Qualifiers: Qualified Code(s): F10.230 - Alcohol dependence with withdrawal, uncomplicated Is this a current diagnosis for this admission?: Yes Plan: The patient will be placed on as needed IV Ativan and a banana bag daily. (3) Dehydration Is this a current diagnosis for this admission?: Yes Plan: He will be hydrated with IV normal saline and will follow his CMP. (4) Abdominal pain Is this a current diagnosis for this admission?: Yes Plan: His pain could be related to alcoholic gastritis. He has associated alcoholic hepatitis. We will obtain viral hepatitis markers. This is likely alcoholic though. We will follow his LFTs. PPI therapy will be provided. As needed antiemetics will be added as well. Pain management will be provided - Time Medications reviewed and adjusted accordingly: Yes Anticipated discharge: Home Within: within 48 hours - Inpatient Certification Medical Necessity: Need Close Monitoring Due to Risk of Patient Decompensation, Need For IV Fluids, Need for Pain Control, Risk of Complication if Not Cared For in Hospital - Plan Summary Plan Summary: DVT prophylaxis will be provided substance Lovenox and GI prophylaxis was ordered with IV PPI therapy. The plan of care was discussed in details with the patient. I answered all questions. The patient agreed to proceed with the above-mentioned plan. The patient is presumably full code. This note was created by [employer] software and may contain typo errors that may have not been proofread.
[2018-09-26] MEDS: NORMAL SALINE 1000 ML 1,000 ML IV PRN ×2 (01:40→09:24)
[2018-09-26] MEDS: MORPHINE SULFATE 10 MG/ML INJ IV PRN ×5 (01:40→19:43)
[2018-09-26] MEDS: LORAZEPAM INJ 2 MG/1 ML VIAL IV PRN ×3 (01:41→10:09)
[2018-09-26 05:23] LABS: HEMATOCRIT 34.1 % (37.9-51.0); MEAN CORPUSCULAR HGB CONC 33.1 g/dL (32.0-36.0); MEAN CORPUSCULAR VOLUME 112 fl (80-97); PLATELET COUNT 131 10^3/uL (150-450); RED BLOOD COUNT 3.05 10^6/uL (4.35-5.55); WHITE BLOOD COUNT 7.9 10^3/uL (4.0-10.5)
[2018-09-26 05:24] LABS: HEMOGLOBIN 11.3 g/dL (13.5-17.0)
[2018-09-26 05:36] LABS: ABSOLUTE LYMPHOCYTES# (MANUAL) 1.4 10^3/uL (0.5-4.7); ABSOLUTE MONOCYTES # (MANUAL) 0.6 10^3/uL (0.1-1.4); ABSOLUTE NEUTROPHILS# (MANUAL) 5.9 10^3/uL (1.7-8.2); BASOPHILS % (MANUAL) 0 % (0-2); EOSINOPHILS % (MANUAL) 0 % (0-6); LYMPHOCYTES % (MANUAL) 18 % (13-45); MONOCYTES % (MANUAL) 7 % (3-13); SEGMENTED NEUTROPHILS % (MAN) 75 % (42-78); TOTAL CELLS COUNTED 100
[2018-09-26 05:37] LABS: ALANINE AMINOTRANSFERASE 231 U/L (21-72); ALKALINE PHOSPHATASE 150 U/L (38-126); ANISOCYTOSIS 2+; ASPARTATE AMINO TRANSFERASE 610 U/L (17-59); BILIRUBIN,DIRECT 1.9 mg/dL (0.0-0.4); BILIRUBIN,TOTAL 2.7 mg/dL (0.2-1.3); BLOOD UREA NITROGEN 10 mg/dL (7-20); CALCIUM 8.5 mg/dL (8.4-10.2); CHLORIDE 99 mmol/L (98-107); GLUCOSE 177 mg/dL (75-110); PHOSPHORUS 3.5 mg/dL (2.5-4.5); PLATELET COMMENT ADEQUATE; POLYCHROMASIA 2+; POTASSIUM 4.6 mmol/L (3.6-5.0); TOTAL PROTEIN 6.5 g/dL (6.3-8.2)
[2018-09-26 05:42] LABS: CARBON DIOXIDE 13 mmol/L (22-30); SODIUM 135.6 mmol/L (137-145)
[2018-09-26 05:45] LABS: ANION GAP 24 (5-19)
[2018-09-26] MEDS: SUCRALFATE 1 GM TABLET PO SCH ×4 (08:55→21:45)
[2018-09-26] MEDS: PANTOPRAZOLE SODIUM 40 MG VIAL IV SCH ×2 (09:14→21:43)
[2018-09-26] MEDS: ENOXAPARIN SODIUM INJ 40 MG/0.4 ML DISP.SYRIN SUBCUT SCH (09:18)
--- NOTE | 2018-09-26 14:34 | PDOC PROGRESS REPORT ---
Subjective Progress Note for:: 09/26/18 Subjective:: Patient reports feeling better than on admission. He continues to use as needed Ativan for withdrawal symptoms. Seems that the patient has been drinking daily for 2 years. During that time he is drinking about 1/5 or more of vodka daily. No past history of withdrawal seizures. Last drink was approximately noon on Friday. Currently complains of some shakes. Came to the hospital because of epigastric abdominal pain. Admits to taking ibuprofen 2-3 times daily for headaches or other pain when he remembers. He also utilizes coffee daily and smokes approximately 1 pack/week. Denies bloody stool or hematemesis. He intermittently has been taking a PPI. No history of perforated ulcer. He expresses interest in rehab. Reason For Visit: ALCOHOLIC ACIDOSIS, ALCOHOLIC HEPATITIS Physical Exam Vital Signs: Temp Pulse Resp BP Pulse Ox 97.9 F 95 17 129/75 H 95 09/26/18 11:49 09/26/18 11:49 09/26/18 11:49 09/26/18 11:49 09/26/18 11:49 Intake & Output 09/25/18 09/26/18 09/27/18 06:59 06:59 06:59 Intake Total 2640 773 Balance 2640 773 Weight 80.1 kg General appearance: PRESENT: no acute distress, disheveled Head exam: PRESENT: atraumatic, normocephalic Eye exam: PRESENT: conjunctiva pink, EOMI, PERRLA. ABSENT: scleral icterus Ear exam: PRESENT: normal external ear exam Mouth exam: PRESENT: moist, tongue midline Respiratory exam: PRESENT: clear to auscultation addie. ABSENT: rales, rhonchi, wheezes Cardiovascular exam: PRESENT: +S1, +S2, tachycardia GI/Abdominal exam: PRESENT: other - No ascites, guarding, signs of acute abdomen. Mild tenderness to palpation over epigastric region. Bowel sounds present. Extremities exam: PRESENT: other - No edema bilateral lower extremities. Neurological exam: PRESENT: alert, awake, oriented to person, oriented to place, oriented to time, oriented to situation, CN II-XII grossly intact. ABSENT: motor sensory deficit Psychiatric exam: PRESENT: depressed, flat affect Results Laboratory Results: 09/26/18 04:49 09/26/18 04:49 09/25/18 09/25/18 09/25/18 19:59 19:59 19:59 WBC 5.0 RBC 3.77 L Hgb 14.1 Hct 41.8 MCV 111 H MCH 37.3 H MCHC 33.6 RDW 20.8 H Plt Count 196 Seg Neutrophils % 73.2 Lymphocytes % 14.5 Monocytes % 10.3 Eosinophils % 0.1 Basophils % 1.9 Absolute Neutrophils 3.7 Absolute Lymphocytes 0.7 Absolute Monocytes 0.5 Absolute Eosinophils 0.0 Absolute Basophils 0.1 VBG pH VBG pCO2 VBG HCO3 VBG Base Excess Sodium 141.9 Potassium 4.8 Chloride 97 L Carbon Dioxide 9 L* Anion Gap 36 H BUN 10 Creatinine 0.96 Est GFR ( Amer) > 60 Est GFR (Non-Af Amer) > 60 Glucose 55 L Calcium 10.2 Phosphorus Magnesium 2.1 Total Bilirubin 2.8 H AST 908 H ALT 309 H Alkaline Phosphatase 218 H Total Protein 8.2 Albumin 5.3 H Lipase Urine Color YELLOW Urine Appearance SLIGHTLY-CLOUDY Urine pH 5.0 Ur Specific [place] 1.016 Urine Protein 30 H Urine Glucose (UA) NEGATIVE Urine Ketones 80 H Urine Blood SMALL H Urine Nitrite NEGATIVE Ur Leukocyte Esterase NEGATIVE Urine WBC (Auto) 1 Urine RBC (Auto) 1 09/25/18 09/25/18 09/26/18 19:59 22:20 04:49 WBC 7.9 RBC 3.05 L Hgb 11.3 L D Hct 34.1 L MCV 112 H MCH 37.0 H MCHC 33.1 RDW 20.0 H Plt Count 131 L Seg Neutrophils % Not Reportable Lymphocytes % Not Reportable Monocytes % Not Reportable Eosinophils % Not Reportable Basophils % Not Reportable Absolute Neutrophils Not Reportable Absolute Lymphocytes Not Reportable Absolute Monocytes Not Reportable Absolute Eosinophils Not Reportable Absolute Basophils Not Reportable VBG pH 7.14 L* VBG pCO2 29.8 L VBG HCO3 9.8 L VBG Base Excess -17.9 Sodium Potassium Chloride Carbon Dioxide Anion Gap BUN Creatinine Est GFR ( Amer) Est GFR (Non-Af Amer) Glucose Calcium Phosphorus Magnesium Total Bilirubin AST ALT Alkaline Phosphatase Total Protein Albumin Lipase 66.4 Urine Color Urine Appearance Urine pH Ur Specific [place] Urine Protein Urine Glucose (UA) Urine Ketones Urine Blood Urine Nitrite Ur Leukocyte Esterase Urine WBC (Auto) Urine RBC (Auto) 09/26/18 04:49 WBC RBC Hgb Hct MCV MCH MCHC RDW Plt Count Seg Neutrophils % Lymphocytes % Monocytes % Eosinophils % Basophils % Absolute Neutrophils Absolute Lymphocytes Absolute Monocytes Absolute Eosinophils Absolute Basophils VBG pH VBG pCO2 VBG HCO3 VBG Base Excess Sodium 135.6 L Potassium 4.6 Chloride 99 Carbon Dioxide 13 L Anion Gap 24 H BUN 10 Creatinine 0.89 Est GFR ( Amer) > 60 Est GFR (Non-Af Amer) > 60 Glucose 177 H Calcium 8.5 Phosphorus 3.5 Magnesium 1.8 Total Bilirubin 2.7 H AST 610 H ALT 231 H Alkaline Phosphatase 150 H Total Protein 6.5 Albumin 4.0 Lipase Urine Color Urine Appearance Urine pH Ur Specific [place] Urine Protein Urine Glucose (UA) Urine Ketones Urine Blood Urine Nitrite Ur Leukocyte Esterase Urine WBC (Auto) Urine RBC (Auto) 09/25/18 19:59 Creatine Kinase 81 Assessment and Plan - Diagnosis (1) Alcohol dependence Qualifiers: Substance use status: unspecified alcohol-induced disorder Qualified Code(s): F10.29 - Alcohol dependence with unspecified alcohol-induced disorder Is this a current diagnosis for this admission?: Yes (2) Peptic ulcer Is this a current diagnosis for this admission?: Yes - Time Time Spent with patient: 15-24 minutes Smoking Cessation Education: 3 to 10 minutes Medications reviewed and adjusted accordingly: Yes - Inpatient Certification Based on my medical assessment, after consideration of the patient's comorbidities, presenting symptoms, or acuity I expect that the services needed warrant INPATIENT care.: Yes I certify that my determination is in accordance with my understanding of Medicare's requirements for reasonable and necessary INPATIENT services [42 CFR 412.3e].: Yes - Plan Summary Plan Summary: 1: Alcohol withdrawal -Continue with as needed Ativan -CIWA not available at this hospital. Nor is Serax -CM to discuss rehab options -vitmain supplementation provided -schedule o.5mg ativan q4h x 1 days -continue prn ativan at 1mg q6h prn for w/d symptoms -start gabapentin 300mg tid for w/d symptoms prevention 2. PUD -famotidine x 2-3 days while PPI takes full effect -PPI x minimum 6 weeks daily. high dose while inpatient -carafacte daily -stop NSAID, etoh, tobacco, caffeine use. consider H.Pylori testing
[2018-09-26] MEDS ORDERED: LORAZEPAM INJ 2 MG/1 ML VIAL IV PRN ×2 (14:35→19:28)
[2018-09-26] MEDS: LORAZEPAM INJ 2 MG/1 ML VIAL IV SCH ×3 (14:55→23:11)
[2018-09-26] MEDS: GABAPENTIN 300 MG CAPSULE PO SCH ×2 (14:57→21:45)
[2018-09-26] MEDS: NORMAL SALINE 1000 ML 1,000 ML with POTASSIUM CHLORIDE 20 MEQ, MAGNESIUM SULFATE 8 MEQ,... IV SCH ×5 (17:29)
[2018-09-26] MEDS: PROMETHAZINE HCL INJ 25 MG/1 ML VIAL IV PRN (17:29)
[2018-09-26] MEDS ORDERED: FAMOTIDINE INJ/PF 20 MG/2 ML SDV IV ONE (20:30)
[2018-09-26] MEDS: FAMOTIDINE INJ/PF 20 MG/2 ML SDV IV SCH (21:44)
[2018-09-26] MEDS: ONDANSETRON HCL INJ/PF 4 MG/2 ML SDV IV PRN (23:11)
[2018-09-27] MEDS: MORPHINE SULFATE 10 MG/ML INJ IV PRN ×5 (01:26→23:41)
[2018-09-27] MEDS: LORAZEPAM INJ 2 MG/1 ML VIAL IV SCH ×5 (03:51→23:17)
[2018-09-27] MEDS: GABAPENTIN 300 MG CAPSULE PO SCH ×3 (05:22→23:19)
[2018-09-27] MEDS: NORMAL SALINE 1000 ML 1,000 ML IV PRN ×2 (05:23→15:17)
[2018-09-27 07:26] LABS: HEPATITIS A AB IGM Negative (Negative); HEPATITIS B CORE AB IGM Negative (Negative); HEPATITS B SURFACE ANTIGEN Negative (Negative)
[2018-09-27 07:49] LABS: ABSOLUTE LYMPHOCYTES (AUTO) 0.6 10^3/uL (0.5-4.7); ABSOLUTE MONOCYTES (AUTO) 0.5 10^3/uL (0.1-1.4); ABSOLUTE NEUT (AUTO) 6.2 10^3/uL (1.7-8.2); BASOPHILS % (AUTO) 0.2 % (0-2); HEMATOCRIT 33.7 % (37.9-51.0); HEMOGLOBIN 11.9 g/dL (13.5-17.0); LYMPHOCYTES % (AUTO) 8.2 % (13-45); MEAN CORPUSCULAR HEMOGLOBIN 37.6 pg (27.0-33.4); MEAN CORPUSCULAR HGB CONC 35.2 g/dL (32.0-36.0); RED BLOOD COUNT 3.16 10^6/uL (4.35-5.55); RED CELL DISTRIBUTION WIDTH 19.1 % (11.5-14.0); SEGMENTED NEUTROPHILS % (AUTO) 84.6 % (42-78); TOTAL CELLS COUNTED % (AUTO) 100 %; WHITE BLOOD COUNT 7.3 10^3/uL (4.0-10.5)
[2018-09-27 07:50] LABS: ALANINE AMINOTRANSFERASE 175 U/L (21-72); ALBUMIN 3.9 g/dL (3.5-5.0); ALKALINE PHOSPHATASE 152 U/L (38-126); ANION GAP 15 (5-19); ASPARTATE AMINO TRANSFERASE 284 U/L (17-59); BILIRUBIN,DIRECT 1.9 mg/dL (0.0-0.4); BILIRUBIN,TOTAL 2.7 mg/dL (0.2-1.3); BLOOD UREA NITROGEN 3 mg/dL (7-20); CALCIUM 9.2 mg/dL (8.4-10.2); CARBON DIOXIDE 26 mmol/L (22-30); CHLORIDE 93 mmol/L (98-107); GLUCOSE 190 mg/dL (75-110); PHOSPHORUS 1.2 mg/dL (2.5-4.5); POTASSIUM 3.5 mmol/L (3.6-5.0); SODIUM 134.2 mmol/L (137-145); TOTAL PROTEIN 6.7 g/dL (6.3-8.2)
[2018-09-27] MEDS: PROMETHAZINE HCL INJ 25 MG/1 ML VIAL IV PRN ×2 (07:59→14:27)
[2018-09-27 08:23] LABS: MEAN CORPUSCULAR VOLUME 107 fl (80-97); PLATELET COUNT 96 10^3/uL (150-450)
[2018-09-27] MEDS: SUCRALFATE 1 GM TABLET PO SCH ×4 (09:00→23:21)
[2018-09-27] MEDS: PANTOPRAZOLE SODIUM 40 MG VIAL IV SCH ×2 (10:45→23:21)
[2018-09-27] MEDS: FAMOTIDINE INJ/PF 20 MG/2 ML SDV IV SCH ×2 (10:45→23:20)
[2018-09-27] MEDS: ENOXAPARIN SODIUM INJ 40 MG/0.4 ML DISP.SYRIN SUBCUT SCH (10:47)
[2018-09-27] MEDS: ONDANSETRON HCL INJ/PF 4 MG/2 ML SDV IV PRN ×3 (10:58→23:22)
[2018-09-27] MEDS ORDERED: LORAZEPAM INJ 2 MG/1 ML VIAL IV PRN (13:20)
--- NOTE | 2018-09-27 13:27 | PDOC PROGRESS REPORT ---
Subjective Progress Note for:: 09/27/18 Subjective:: Patient was found sleeping around 1230 today. He does report waking up prior to breakfast, and falling back to sleep this morning. He seems a little groggy. He walks to the bathroom fine. He reports less abdominal pain. He denies having vomiting. He does report nausea. Overall feels that he is improving. No observable or reported withdrawal symptoms at the time of evaluation. No reports of cravings. Continues to consider rehab. Reason For Visit: ALCOHOLIC ACIDOSIS, ALCOHOLIC HEPATITIS Physical Exam Vital Signs: Temp Pulse Resp BP Pulse Ox 98.6 F 115 H 16 143/84 H 100 09/27/18 11:07 09/27/18 11:07 09/27/18 11:07 09/27/18 11:07 09/27/18 11:07 Intake & Output 09/26/18 09/27/18 09/28/18 06:59 06:59 06:59 Intake Total 2640 3382 Balance 2640 3382 Weight 80.1 kg 80 kg General appearance: PRESENT: no acute distress, cooperative, disheveled Head exam: PRESENT: atraumatic, normocephalic Eye exam: PRESENT: conjunctiva pink, EOMI, PERRLA. ABSENT: scleral icterus Ear exam: PRESENT: normal external ear exam Mouth exam: PRESENT: moist, tongue midline Respiratory exam: PRESENT: other - No significant rhonchi, rales, wheeze. Cardiovascular exam: PRESENT: +S1, +S2, tachycardia GI/Abdominal exam: PRESENT: normal bowel sounds, soft, tenderness - limited tenderness to palpation in the epigastric region. ABSENT: distended, guarding, mass, organolmegaly, rebound Extremities exam: PRESENT: other - No edema bilateral lower ext Neurological exam: PRESENT: alert, awake, oriented to person, oriented to place, oriented to time, oriented to situation, CN II-XII grossly intact. ABSENT: motor sensory deficit Psychiatric exam: PRESENT: normal mood, other - Seems a little sleepy Results Laboratory Results: 09/27/18 06:40 09/27/18 06:40 09/27/18 09/27/18 06:40 06:40 WBC 7.3 RBC 3.16 L Hgb 11.9 L Hct 33.7 L MCV 107 H D MCH 37.6 H MCHC 35.2 RDW 19.1 H Plt Count 96 L Seg Neutrophils % 84.6 H Lymphocytes % 8.2 L Monocytes % 7.0 Eosinophils % 0.0 Basophils % 0.2 Absolute Neutrophils 6.2 Absolute Lymphocytes 0.6 Absolute Monocytes 0.5 Absolute Eosinophils 0.0 Absolute Basophils 0.0 Sodium 134.2 L Potassium 3.5 L Chloride 93 L Carbon Dioxide 26 Anion Gap 15 BUN 3 L Creatinine 0.50 L Est GFR ( Amer) > 60 Est GFR (Non-Af Amer) > 60 Glucose 190 H Calcium 9.2 Phosphorus 1.2 L Magnesium 2.1 Total Bilirubin 2.7 H AST 284 H ALT 175 H Alkaline Phosphatase 152 H Total Protein 6.7 Albumin 3.9 09/25/18 19:59 Creatine Kinase 81 Assessment and Plan - Diagnosis (1) Alcohol dependence Qualifiers: Substance use status: unspecified alcohol-induced disorder Qualified Code(s): F10.29 - Alcohol dependence with unspecified alcohol-induced disorder Is this a current diagnosis for this admission?: Yes (2) Peptic ulcer Is this a current diagnosis for this admission?: Yes (3) Macrocytic anemia Is this a current diagnosis for this admission?: Yes - Time Time Spent with patient: 15-24 minutes Medications reviewed and adjusted accordingly: Yes Anticipated discharge: Other - Considering rehab - Inpatient Certification Based on my medical assessment, after consideration of the patient's comorbidities, presenting symptoms, or acuity I expect that the services needed warrant INPATIENT care.: Yes I certify that my determination is in accordance with my understanding of [facility]'s requirements for reasonable and necessary INPATIENT services [42 CFR 412.3e].: Yes - Plan Summary Plan Summary: 1: Alcohol withdrawal -Lower scheduled Ativan to 0.5 mg every 8 hours -Decrease as needed Ativan for withdrawal symptoms to 0.5 mg every 8 hours as needed -Continue gabapentin 300 mg 3 times daily -Consider naltrexone on discharge. Check for normal LFTs prior to initiating. -Case management to assist with rehab options 2. PUD -famotidine x 2-3 days while PPI takes full effect -PPI x minimum 6 weeks daily. high dose while inpatient -carafacte increased to every 6 hours -stop NSAID, etoh, tobacco, caffeine use. consider H.Pylori testing -Morphine decreased to 1 mg every 4 hours due to patient seeming oversedated 3. Macrocytic anemia -Likely related to alcoholism. Start folic acid tabs and thiamine daily -TSH was checked on admission.
[2018-09-27] MEDS: NORMAL SALINE 1000 ML 1,000 ML with POTASSIUM CHLORIDE 20 MEQ, MAGNESIUM SULFATE 8 MEQ,... IV SCH ×5 (18:16)
[2018-09-28 05:17] LABS: ABSOLUTE LYMPHOCYTES (AUTO) 0.5 10^3/uL (0.5-4.7); ABSOLUTE MONOCYTES (AUTO) 0.6 10^3/uL (0.1-1.4); ABSOLUTE NEUT (AUTO) 7.8 10^3/uL (1.7-8.2); BASOPHILS % (AUTO) 0.2 % (0-2); EOSINOPHILS % (AUTO) 0.1 % (0-6); MEAN CORPUSCULAR HEMOGLOBIN 37.1 pg (27.0-33.4); MEAN CORPUSCULAR HGB CONC 35.1 g/dL (32.0-36.0); MEAN CORPUSCULAR VOLUME 106 fl (80-97); MONOCYTES % (AUTO) 6.4 % (3-13); RED CELL DISTRIBUTION WIDTH 18.6 % (11.5-14.0); SEGMENTED NEUTROPHILS % (AUTO) 87.3 % (42-78); TOTAL CELLS COUNTED % (AUTO) 100 %
[2018-09-28 05:29] LABS: PLATELET COUNT 75 10^3/uL (150-450)
[2018-09-28 05:33] LABS: ALANINE AMINOTRANSFERASE 135 U/L (21-72); ALBUMIN 3.9 g/dL (3.5-5.0); ALKALINE PHOSPHATASE 161 U/L (38-126); ANION GAP 10 (5-19); ASPARTATE AMINO TRANSFERASE 192 U/L (17-59); BILIRUBIN,DIRECT 1.6 mg/dL (0.0-0.4); BILIRUBIN,TOTAL 2.5 mg/dL (0.2-1.3); BLOOD UREA NITROGEN 3 mg/dL (7-20); CALCIUM 9.1 mg/dL (8.4-10.2); CARBON DIOXIDE 31 mmol/L (22-30); CHLORIDE 95 mmol/L (98-107); GLUCOSE 191 mg/dL (75-110); PHOSPHORUS 1.4 mg/dL (2.5-4.5); POTASSIUM 3.2 mmol/L (3.6-5.0); SODIUM 135.5 mmol/L (137-145)
[2018-09-28] MEDS: LORAZEPAM INJ 2 MG/1 ML VIAL IV SCH (06:24)
[2018-09-28] MEDS: GABAPENTIN 300 MG CAPSULE PO SCH (06:25)
[2018-09-28] MEDS: SUCRALFATE 1 GM TABLET PO SCH ×2 (06:25→12:28)
[2018-09-28 07:26] LABS: HEPATITIS C VIRUS ANTIBODY <0.1 s/co ratio (0.0-0.9)
[2018-09-28] MEDS ORDERED: FOLIC ACID 1 MG TABLET PO SCH (10:00)
[2018-09-28] MEDS ORDERED: THIAMINE HCL 100 MG TABLET PO SCH (10:00)
[2018-09-28] MEDS: FAMOTIDINE INJ/PF 20 MG/2 ML SDV IV SCH (10:26)
[2018-09-28] MEDS: PANTOPRAZOLE SODIUM 40 MG VIAL IV SCH (10:26)
[2018-09-28] MEDS: ENOXAPARIN SODIUM INJ 40 MG/0.4 ML DISP.SYRIN SUBCUT SCH (10:26)
[2018-09-28 11:49] LABS: PATH REVIEW PATHOLOGIST REVIEWED
[2018-09-28] MEDS ORDERED: POTASSIUM CHLORIDE 10 MEQ CAPSULE.ER PO ONE (12:30)
[2018-09-28 12:53] VITALS: BP 140/94
--- NOTE | 2018-09-28 19:44 | PDOC DISCHARGE SUMMARY ---
General - Admit/Disc Date/PCP Admission Date/Primary Care Provider: 09/25/18 23:19 Discharge Date: 09/28/18 - Discharge Diagnosis (1) Alcoholic ketoacidosis Is this a current diagnosis for this admission?: Yes (2) Alcohol withdrawal Is this a current diagnosis for this admission?: Yes (3) Alcohol dependence Is this a current diagnosis for this admission?: Yes (4) Abdominal pain Is this a current diagnosis for this admission?: Yes (5) Dehydration Is this a current diagnosis for this admission?: Yes - Additional Information Resuscitation Status: Full Code Prescriptions: Folic Acid [Folvite 1 mg Tablet] 1 mg PO DAILY 30 Days #30 tablet Gabapentin [Neurontin 300 mg Capsule] 300 mg PO BID 30 Days #60 capsule Omeprazole 40 mg PO DAILY #30 capsule. Thiamine HCl [Thiamine 100 mg Tablet] 100 mg PO DAILY 30 Days #30 tablet Home Medications: Folic Acid [Folvite 1 mg Tablet] 1 mg PO DAILY 30 Days #30 tablet 09/28/18 Gabapentin [Neurontin 300 mg Capsule] 300 mg PO BID 30 Days #60 capsule 09/28/18 Omeprazole 40 mg PO DAILY #30 capsule. 09/28/18 Thiamine HCl [Thiamine 100 mg Tablet] 100 mg PO DAILY 30 Days #30 tablet 09/28/18 History of Present Illness History of Present Illness: GHANSHYAM JUÁREZ is a 53 year old male history of alcoholism, who decided he was going to cut down drinking and presented with 3 days of nausea and vomiting and abdominal pain. Blood pressure was mildly elevated at 147/91, heart rate 125. Labs revealed AST 908 ALT 309. Urinalysis revealed ketones of 80 and 30 of protein. Alcohol level was 129. Patient was admitted to medical service. Hospital Course Hospital Course: Patient was treated with Ativan taper. He was also treated with thiamine and folic acid and multivitamin. He was also treated with antiemetics. He has history of PUD and was treated with PPI. Denies rectal bleeding. His hemoglobin initially decreased following hydration but remained stable. This is most likely from hemodilution. His liver function were trended and they have been decreasing nicely. Patient counseled about quitting alcohol. States he has decided to quit. He wishes to continue rehab as outpatient and is being dis charged in improved condition. Physical Exam Vital Signs: Temp Pulse Resp BP Pulse Ox 99.2 F 121 H 16 114/79 93 09/28/18 08:10 09/28/18 08:10 09/28/18 08:10 09/28/18 08:10 09/28/18 08:10 Intake & Output 09/27/18 09/28/18 09/29/18 06:59 06:59 06:59 Intake Total 3382171 Balance 3381 2171 2022 Weight 80 kg 80 kg Results Laboratory Results: 09/28/18 04:47 09/28/18 04:47 09/28/18 09/28/18 04:47 04:47 WBC 9.0 RBC 3.50 L Hgb 13.0 L Hct 37.0 L MCV 106 H MCH 37.1 H MCHC 35.1 RDW 18.6 H Plt Count 75 L Seg Neutrophils % 87.3 H Lymphocytes % 6.0 L Monocytes % 6.4 Eosinophils % 0.1 Basophils % 0.2 Absolute Neutrophils 7.8 Absolute Lymphocytes 0.5 Absolute Monocytes 0.6 Absolute Eosinophils 0.0 Absolute Basophils 0.0 Sodium 135.5 L Potassium 3.2 L Chloride 95 L Carbon Dioxide 31 H Anion Gap 10 BUN 3 L Creatinine 0.50 L Est GFR ( Amer) > 60 Est GFR (Non-Af Amer) > 60 Glucose 191 H Calcium 9.1 Phosphorus 1.4 L Magnesium 2.3 Total Bilirubin 2.5 H AST 192 H ALT 135 H Alkaline Phosphatase 161 H Total Protein 7.0 Albumin 3.9 09/25/18 19:59 Creatine Kinase 81 Qualifiers - * PATIENT BEING DISCHARGED WITH ANY OF THE FOLLOWING DIAGNOSIS: No
== END 2018-09-28 15:37 | disposition home or self-care (01) | DRG 641 ==
LOC: ER 17:26 → EH 23:19 → 5 09-26 01:16
PROVIDERS: ADMIT Family Medicine; ATTEND Family Medicine
DX: E87.2 Acidosis (principal); F10.239 Alcohol dependence with withdrawal, unspecified; E86.0 Dehydration; Y90.6 Blood alcohol level of 120-199 mg/100 ml; F17.200 Nicotine dependence, unspecified, uncomplicated; K21.9 Gastro-esophageal reflux disease without esophagitis; K70.10 Alcoholic hepatitis without ascites; D64.9 Anemia, unspecified; E16.2 Hypoglycemia, unspecified; Z87.11 Personal history of peptic ulcer disease
CPT/HCPCS: 36415; 80053; 80074; 80307; 81001; 82550; 82803; 82962; 83036; 83690; 83735; 84100; 85025; 96361; 96372; 96374; 96375; 99285; J1650; J2060; J2270; J2405; J2550; J3360; J3411; J3475; J3480; J3490; J7030; J7120; S0028; S0164

== ENCOUNTER → 2018-10-08 | Outpatient (CLI) | payer OTHER ==
[2018-10-08 08:27] LABS: HEMATOCRIT 34.7 % (37.9-51.0); MEAN CORPUSCULAR HEMOGLOBIN 36.7 pg (27.0-33.4); MEAN CORPUSCULAR HGB CONC 34.6 g/dL (32.0-36.0); MEAN CORPUSCULAR VOLUME 106 fl (80-97); RED BLOOD COUNT 3.26 10^6/uL (4.35-5.55); RED CELL DISTRIBUTION WIDTH 17.4 % (11.5-14.0); WHITE BLOOD COUNT 5.5 10^3/uL (4.0-10.5)
[2018-10-08 08:43] LABS: ALANINE AMINOTRANSFERASE 78 U/L (21-72); ALKALINE PHOSPHATASE 189 U/L (38-126); ANION GAP 7 (5-19); ASPARTATE AMINO TRANSFERASE 63 U/L (17-59); BILIRUBIN,DIRECT 0.5 mg/dL (0.0-0.4); BILIRUBIN,TOTAL 0.6 mg/dL (0.2-1.3); BLOOD UREA NITROGEN 12 mg/dL (7-20); CALCIUM 10.1 mg/dL (8.4-10.2); CARBON DIOXIDE 28 mmol/L (22-30); CHLORIDE 101 mmol/L (98-107); GLUCOSE 172 mg/dL (75-110); POTASSIUM 4.7 mmol/L (3.6-5.0); SODIUM 136.4 mmol/L (137-145); TRIGLYCERIDES 63 mg/dL (<150)
[2018-10-08 08:44] LABS: ABSOLUTE LYMPHOCYTES# (MANUAL) 1.2 10^3/uL (0.5-4.7); ABSOLUTE MONOCYTES # (MANUAL) 0.4 10^3/uL (0.1-1.4); EOSINOPHILS % (MANUAL) 2 % (0-6); LYMPHOCYTES % (MANUAL) 22 % (13-45); MONOCYTES % (MANUAL) 7 % (3-13); TOTAL CELLS COUNTED 100
[2018-10-08 08:50] LABS: ANISOCYTOSIS 1+; PLATELET CLUMPS PRESENT; PLATELET COMMENT INCREASED; PLATELET COUNT 534 10^3/uL (150-450); POIKILOCYTOSIS SLIGHT; POLYCHROMASIA SLIGHT; TEAR DROP CELLS SLIGHT
[2018-10-08 08:55] LABS: DIRECT LDL 98 mg/dL (<100); SPHEROCYTES SLIGHT
[2018-10-09 14:39] LABS: ABSOLUTE NEUTROPHILS# (MANUAL) 3.6 10^3/uL (1.7-8.2); BASOPHILS % (MANUAL) 3 % (0-2); SEGMENTED NEUTROPHILS % (MAN) 66 % (42-78)
[2018-10-09 14:42] LABS: PATH REVIEW PATHOLOGIST REVIEWED
== END ==
LOC: CCC 07:05
DX: Z00.00 Encounter for general adult medical examination without abnormal findings (principal)
CPT/HCPCS: 36415; 80053; 80061; 83036; 84443; 85025

== ENCOUNTER → 2018-11-05 | Outpatient (CLI) | payer OTHER | LOC: CCC 15:23 | DX: Z00.00 Encounter for general adult medical examination without abnormal findings (principal) | CPT/HCPCS: 36415; 84153 ==

== ENCOUNTER → 2018-12-03 | Outpatient (CLI) | payer OTHER ==
[2018-12-04 09:38] LABS: HEPATITIS C VIRUS AB <0.1 s/co ratio (0.0-0.9)
== END ==
LOC: CCC 09:46
DX: Z00.00 Encounter for general adult medical examination without abnormal findings (principal)
CPT/HCPCS: 36415; 86701; 86803; 86804

== ENCOUNTER 2019-02-22 19:36 | Emergency (ER) | payer SELFPAY ==
[2019-02-22] MEDS ORDERED: ONDANSETRON HCL INJ/PF 4 MG/2 ML SDV IV ONE (21:00)
[2019-02-22] MEDS ORDERED: NORMAL SALINE 1000 ML 1,000 ML IV ONE ×2 (21:00→23:12)
--- NOTE | 2019-02-22 21:02 | ER Document Report ---
ED Medical Screen (RME) - General Chief Complaint: ETOH Abuse Stated Complaint: VOMITING/DIARRHEA Time Seen by Provider: 02/22/19 20:59 Primary Care Provider: [facility] [Primary Care Provider] - Follow up as needed Notes: 53-year-old male with a history of alcohol abuse and pancreatitis with chief complaint of vomiting multiple times this evening, he states he has vomited 6 times in the past hour. He states that he had become clean off of alcohol, he states his dog diet and then he went on a drinking binge for the past 2 weeks, his last alcoholic drink was at 4:30 PM. He states that he knows when he starts vomiting like this he will start having withdrawals when he cannot drink. He denies history of seizure. He states he is interested in detox. TRAVEL OUTSIDE OF THE [place] IN LAST 30 DAYS: No - Related Data Allergies/Adverse Reactions: No Known Allergies Allergy (Verified 06/15/17 19:34) Past Medical History Renal/ Medical History: Denies: Hx Peritoneal Dialysis GI Medical History: Reports: Hx Gastroesophageal Reflux Disease Psychiatric Medical History: Reports: Hx Anxiety Denies: Hx Depression Past Surgical History: Reports: Hx Orthopedic Surgery - Right forearm surgery - Immunizations Hx Diphtheria, Pertussis, Tetanus Vaccination: Yes History of Influenza Vaccine for 04/2017 - 09/2017 Season: Refused Physical Exam - Vital signs Vitals: Temp Pulse Resp BP Pulse Ox 98.1 F 117 H 22 H 110/84 96 02/22/19 19:53 02/22/19 19:53 02/22/19 19:53 02/22/19 19:53 02/22/19 19:53 - General General appearance: Other - Pale, anxious, restless, but not in severe distress - Cardiovascular Rhythm: Regular, Tachycardia Heart sounds: Normal auscultation, S1 appreciated, S2 appreciated Course - Re-evaluation Re-evalutation: I have greeted and performed a rapid initial assessment of this patient. A comprehensive ED assessment and evaluation of the patient, analysis of test re sults and completion of the medical decision making process will be conducted by additional ED providers. - Vital Signs Vital signs: Temp Pulse Resp BP Pulse Ox 98.1 F 117 H 22 H 110/84 96 02/22/19 19:53 02/22/19 19:53 02/22/19 19:53 02/22/19 19:53 02/22/19 19:53 Doctor's Discharge - Discharge Referrals: [facility] [Primary Care Provider] - Follow up as needed
[2019-02-22 22:05] LABS: ABSOLUTE BASOPHILS # (AUTO) 0.1 10^3/uL (0.0-0.2); ABSOLUTE LYMPHOCYTES (AUTO) 0.8 10^3/uL (0.5-4.7); ABSOLUTE MONOCYTES (AUTO) 0.4 10^3/uL (0.1-1.4); BASOPHILS % (AUTO) 1.4 % (0-2); EOSINOPHILS % (AUTO) 0.1 % (0-6); HEMATOCRIT 43.2 % (37.9-51.0); HEMOGLOBIN 14.6 g/dL (13.5-17.0); LYMPHOCYTES % (AUTO) 15.3 % (13-45); MEAN CORPUSCULAR HEMOGLOBIN 31.8 pg (27.0-33.4); MEAN CORPUSCULAR HGB CONC 33.7 g/dL (32.0-36.0); MEAN CORPUSCULAR VOLUME 94 fl (80-97); MONOCYTES % (AUTO) 6.8 % (3-13); PLATELET COUNT 171 10^3/uL (150-450); RED BLOOD COUNT 4.58 10^6/uL (4.35-5.55); RED CELL DISTRIBUTION WIDTH 15.1 % (11.5-14.0); SEGMENTED NEUTROPHILS % (AUTO) 76.4 % (42-78); TOTAL CELLS COUNTED % (AUTO) 100 %; WHITE BLOOD COUNT 5.2 10^3/uL (4.0-10.5)
[2019-02-22] MEDS ORDERED: LORAZEPAM INJ 2 MG/1 ML VIAL IV ONE (22:50)
--- NOTE | 2019-02-22 22:55 | ER Document Report ---
ED General - General Chief Complaint: ETOH Abuse Stated Complaint: VOMITING/DIARRHEA Time Seen by Provider: 02/22/19 20:59 Primary Care Provider: [facility] [Primary Care Provider] - Follow up as needed TRAVEL OUTSIDE OF THE [place] IN LAST 30 DAYS: No - HPI Notes: Patient is a 53-year-old male that presents to the emergency department for chief complaint of alcohol withdrawal. Patient states that he has been in and out of AA over the last 20 years. He states the longest he has been sober was 20 months. Patient states his last episode of sobriety was about 1 month long. Over the last 1 to 2 weeks he has been drinking about 40 ounces of liquor daily. Patient's last alcohol consumption was at 4:30 PM on 02/22/2019. He states a few hours ago he started to feel shaking all over, chills, and anxious. He also reports nausea with 6-7 episodes of emesis. Patient does report history of chronic pancreatitis and states that he has some mild epigastric pain which is not currently severe. He denies tobacco and drug use. Patient does wish to regain his sobriety. Past Medical History: Basal cell carcinoma BPH, GERD Past Surgical History: Basal cell cancer removal from right shoulder Social History: Alcohol abuse. Denies tobacco and drug use Family History: Reviewed and noncontributory for presenting illness Allergies: Reviewed, see documented allergy list. REVIEW OF SYSTEMS: CONSTITUTIONAL : No fever chills No diaphoresis No recent illness EENT: No vision changes No congestion No sore throat CARDIOVASCULAR: No chest pain No palpitations RESPIRATORY: No shortness of breath No cough No difficulty breathing GASTROINTESTINAL: abdominal pain nausea vomiting No diarrhea GENITOURINARY: No dysuria No hematuria No difficulty urinating MUSCULOSKELETAL: No back pain No leg pain No arm pain SKIN: No rashes No lesions LYMPHATIC: No swollen, enlarged glands. NEUROLOGICAL: No lightheadedness No headache No weakness No paresthesias PSYCHIATRIC: anxiety No depression PHYSICAL EXAMINATION: Vital signs reviewed, nursing noted reviewed. GENERAL: Well-appearing, well-nourished and in no acute distress. HEAD: Atraumatic, normocephalic. EYES: Eyes appear normal, extraocular movements intact, sclera anicteric, conjunctiva are normal. ENT: nares patent, oropharynx clear without exudates. Moist mucous membranes. NECK: Normal range of motion, supple without lymphadenopathy LUNGS: Breath sounds clear to auscultation bilaterally and equal. No wheezes rales or rhonchi. HEART: Tachycardic rate and regular rhythm without murmurs ABDOMEN: Soft, nontender, normoactive bowel sounds. No rebound, guarding, or rigidity. No masses appreciated. EXTREMITIES: Nontender, good range of motion, no pitting or edema. NEUROLOGICAL:Mildly tremulous. No focal neurological deficits. Moves all ex tremities spontaneously Motor and sensory grossly intact on exam. PSYCH: Normal mood, normal affect. No hallucinations SKIN: Warm, Dry, normal turgor, no rashes or lesions noted on exposed skin - Related Data Allergies/Adverse Reactions: No Known Allergies Allergy (Verified 02/22/19 21:06) Past Medical History - Social History Smoking Status: Current Some Day Smoker Chew tobacco use (# tins/day): No Frequency of alcohol use: Heavy Drug Abuse: None Family History: Reviewed & Not Pertinent Patient has suicidal ideation: No Patient has homicidal ideation: No Renal/ Medical History: Denies: Hx Peritoneal Dialysis GI Medical History: Reports: Hx Gastroesophageal Reflux Disease Psychiatric Medical History: Reports: Hx Anxiety Denies: Hx Depression Past Surgical History: Reports: Hx Orthopedic Surgery - Right forearm surgery - Immunizations Hx Diphtheria, Pertussis, Tetanus Vaccination: Yes Physical Exam - Vital signs Vitals: Temp Pulse Resp BP Pulse Ox 98.1 F 117 H 22 H 110/84 96 02/22/19 19:53 02/22/19 19:53 02/22/19 19:53 02/22/19 19:53 02/22/19 19:53 Course - Re-evaluation Re-evalutation: 02/22/19 22:54 Vitals reviewed. Nursing notes reviewed. Patient presented to the ER tachycardic and mildly tremulous consistent with early alcohol withdrawals. He was given IV fluids and Zofran. He states his nausea has significantly improved since receiving antiemetics. Patient has no history of delirium tremens or with drawal seizures. He is currently alert and mentating appropriately. 02/23/19 03:29 Patient reevaluated and is unchanged. He has requested Ativan for anxiety which was given. Patient does not have acute pancreatitis. He has no severe electrolyte derangements or renal insufficiency. Patient's blood alcohol was 158 however clinically he does not appear intoxicated. He does not have any acute withdrawal symptoms at this time. Patient is requesting inpatient detox which cannot be arranged for him tonight. He would like to stay and talk to the psych team in the morning to see if he could be transferred to detox. Patient is currently medically cleared and stable for discharge or transfer. Laboratory 02/22/19 02/22/19 02/22/19 21:24 21:24 22:54 WBC 5.2 RBC 4.58 Hgb 14.6 Hct 43.2 MCV 94 MCH 31.8 MCHC 33.7 RDW 15.1 H Plt Count 171 Seg Neutrophils % 76.4 Lymphocytes % 15.3 Monocytes % 6.8 Eosinophils % 0.1 Basophils % 1.4 Absolute Neutrophils 4.0 Absolute Lymphocytes 0.8 Absolute Monocytes 0.4 Absolute Eosinophils 0.0 Absolute Basophils 0.1 Sodium Cancelled 136.7 L Potassium Cancelled 4.1 Chloride Cancelled 96 L Carbon Dioxide Cancelled 23 Anion Gap Cancelled 18 BUN Cancelled 19 Creatinine Cancelled 0.95 Est GFR ( Amer) Cancelled > 60 Est GFR (Non-Af Amer) Cancelled > 60 Glucose Cancelled 137 H Calcium Cancelled 9.0 Total Bilirubin Cancelled 2.1 H Direct Bilirubin Cancelled 1.4 H Neonat Total Bilirubin Cancelled Not Reportable Neonat Direct Bilirubin Cancelled Not Reportable Neonat Indirect Bili Cancelled Not Reportable AST Cancelled 209 H ALT Cancelled 139 Alkaline Phosphatase Cancelled 304 H Total Protein Cancelled 6.0 L Albumin Cancelled 3.5 Lipase Cancelled Cancelled Urine Color Urine Appearance Urine pH Ur Specific [place] Urine Protein Urine Glucose (UA) Urine Ketones Urine Blood Urine Nitrite Urine Bilirubin Urine Urobilinogen Ur Leukocyte Esterase Urine WBC (Auto) U Hyaline Cast (Auto) Squamous Epi Cells Auto Urine Mucus (Auto) Urine Ascorbic Acid Urine Opiates Screen Urine Methadone Screen Ur Barbiturates Screen Ur Phencyclidine Scrn Ur Amphetamines Screen U Benzodiazepines Scrn Urine Cocaine Screen U Marijuana (THC) Screen Serum Alcohol Cancelled 158 02/23/19 02/23/19 02/23/19 00:50 00:54 00:54 WBC RBC Hgb Hct MCV MCH MCHC RDW Plt Count Seg Neutrophils % Lymphocytes % Monocytes % Eosinophils % Basophils % Absolute Neutrophils Absolute Lymphocytes Absolute Monocytes Absolute Eosinophils Absolute Basophils Sodium Potassium Chloride Carbon Dioxide Anion Gap BUN Creatinine Est GFR ( Amer) Est GFR (Non-Af Amer) Glucose Calcium Total Bilirubin Direct Bilirubin Neonat Total Bilirubin Neonat Direct Bilirubin Neonat Indirect Bili AST ALT Alkaline Phosphatase Total Protein Albumin Lipase 146.7 Urine Color YELLOW Urine Appearance CLEAR Urine pH 5.0 Ur Specific [place] 1.020 Urine Protein NEGATIVE Urine Glucose (UA) NEGATIVE Urine Ketones TRACE H Urine Blood NEGATIVE Urine Nitrite NEGATIVE Urine Bilirubin NEGATIVE Urine Urobilinogen 2.0 H Ur Leukocyte Esterase NEGATIVE Urine WBC (Auto) 0 U Hyaline Cast (Auto) 4 Squamous Epi Cells Auto <1 Urine Mucus (Auto) RARE Urine Ascorbic Acid NEGATIVE Urine Opiates Screen NEGATIVE Urine Methadone Screen NEGATIVE Ur Barbiturates Screen NEGATIVE Ur Phencyclidine Scrn NEGATIVE Ur Amphetamines Screen NEGATIVE U Benzodiazepines Scrn NEGATIVE Urine Cocaine Screen NEGATIVE U Marijuana (THC) Screen NEGATIVE Serum Alcohol - Vital Signs Vital signs: Temp Pulse Resp BP Pulse Ox 98.1 F 117 H 18 105/76 97 02/22/19 19:53 02/22/19 19:53 02/23/19 01:01 02/23/19 01:01 02/23/19 01:01 - Laboratory Result Diagrams: 02/22/19 21:24 02/22/19 22:54 Laboratory results interpreted by me: 02/22/19 02/22/19 02/23/19 21:24 22:54 00:54 RDW 15.1 H Sodium 136.7 L Chloride 96 L Glucose 137 H Total Bilirubin 2.1 H Direct Bilirubin 1.4 H AST 209 H Alkaline Phosphatase 304 H Total Protein 6.0 L Urine Ketones TRACE H Urine Urobilinogen 2.0 H - EKG Interpretation by Me Additional EKG results interpreted by me: 02/22/19 23:10 Interpreted by myself [id number]: Normal sinus rhythm, rate 94, left axis, no ectopy, no STEMI Discharge - Discharge Clinical Impression: Alcohol abuse Condition: Stable Disposition: PSYCH HOSP/UNIT [facility]: [facility] [Primary Care Provider] - Follow up as needed
[2019-02-23 00:03] LABS: ALBUMIN 3.5 g/dL (3.5-5.0); ALCOHOL 158 mg/dL (NONE DETECTED); ALKALINE PHOSPHATASE 304 U/L (38-126); ANION GAP 18 (5-19); ASPARTATE AMINO TRANSFERASE 209 U/L (17-59); BILIRUBIN,DIRECT 1.4 mg/dL (0.0-0.4); BILIRUBIN,TOTAL 2.1 mg/dL (0.2-1.3); BLOOD UREA NITROGEN 19 mg/dL (7-20); CARBON DIOXIDE 23 mmol/L (22-30); CHLORIDE 96 mmol/L (98-107); GLUCOSE 137 mg/dL (75-110); POTASSIUM 4.1 mmol/L (3.6-5.0)
[2019-02-23 01:11] LABS: APPEARANCE,URINE CLEAR; BILIRUBIN,URINE NEGATIVE (NEGATIVE); COLOR,URINE YELLOW; GLUCOSE, URINE NEGATIVE (NEGATIVE); KETONES,URINE TRACE mg/dL (NEGATIVE); LEUKOCYTE ESTERASE,URINE NEGATIVE (NEGATIVE); NITRITE,URINE NEGATIVE (NEGATIVE); PROTEIN,URINE NEGATIVE (NEGATIVE)
[2019-02-23 01:36] LABS: URINE AMPHETAMINES SCREEN NEGATIVE; URINE BARBITURATES SCREEN NEGATIVE; URINE BENZODIAZEPINES SCREEN NEGATIVE; URINE COCAINE SCREEN NEGATIVE; URINE MARIJUANA (THC) SCREEN NEGATIVE; URINE METHADONE SCREEN NEGATIVE; URINE PHENCYCLIDINE SCREEN NEGATIVE
[2019-02-23] MEDS ORDERED: LORAZEPAM INJ 2 MG/1 ML VIAL IV ONE (03:29)
[2019-02-23 10:11] VITALS: BP 118/71
--- NOTE | 2019-02-23 10:12 | EKG REPORT ---
SEVERITY:- OTHERWISE NORMAL ECG - SINUS RHYTHM LEFT AXIS DEVIATION : Confirmed by: Theresa Smith MD 23-Feb-2019 10:12:24
== END 2019-02-23 10:06 | disposition home or self-care (01) ==
LOC: ER 19:36
DX: F10.10 Alcohol abuse, uncomplicated (principal); R19.7 Diarrhea, unspecified; R11.10 Vomiting, unspecified; F17.200 Nicotine dependence, unspecified, uncomplicated
CPT/HCPCS: 93005; 36415; 80307 ×2; 83690; 85025; 80053; 81001; 93010; J2060 ×2; J2405; J7030 ×2; 96361; 96374; 96375; 96376; 99284